=== PATIENT | female | born 1975 | race Caucasian/White ===

== ENCOUNTER 2023-03-10 10:24 | Emergency (ER) | payer SELFPAY ==
[2023-03-10 10:30] VITALS: BP 143/81; PULSE 85; RESP 15; O2SAT 97; BMI 40.9
--- NOTE | 2023-03-10 11:16 | ED_ITS ---
HPI - General Adult General: Chief complaint: General Medical Stated complaint: dizzy, face feels numb Time Seen by Provider: 03/10/23 10:38 History of Present Illness: Patient is a 48-year-old female who comes to the ED with fatigue. Patient states that this morning patient drinks coffee and then took a caffeine pill. Little over half an hour after taking the caffeine pill patient described feeling a little dizzy, episode of palpitations and some tingling sensation to face. Although symptoms have resolved before arrival to the ED. Currently she just feels really fatigued. Denies any fevers, chest pain, shortness of breath, diaphoresis, nausea/vomiting, abdominal pain or bladder symptoms. Patient does endorse some constipation and is only passing some small hard stools for the past couple days. Patient states she does not drink enough water daily. Associated symptoms: Reports palpitations (Resolved before coming to ED); Deny chest pain, dyspnea, headache(s), nausea, rash or vomiting Review of Systems Const: Reports: fatigue; Denies: fever(s) or chills Eyes: Denies: change in vision or eye discomfort ENMT: Denies: throat pain, odynophagia, nasal discharge or nasal congestion Card: Reports: palpitations (Resolved before coming to ED) and lightheadedness (Resolved); Denies: chest pain, edema, swelling of feet/ankles, dyspnea on exertion or orthopnea Resp: Denies: dyspnea, productive cough or non-productive cough GI: Reports: constipation; Denies: abdominal pain, nausea, vomiting, diarrhea or hematochezia : Denies: flank pain, dysuria or hematuria Musc: Denies: neck pain, back pain or extremity swelling Skin/Breast: Denies: rash or new lesions Neuro: Reports: dizziness; Denies: headache(s), numbness in extremities or weakness in extremities PFS ED PFSH: Medical History (Updated 03/10/23 @ 11:33 by JESSICA Pierre) No pertinent family history Surgical History (Updated 03/10/23 @ 11:22 by JESSICA Pierre) No pertinent past surgical history Social History (Updated 01/23/20 @ 16:43 by Irish Dove RN) Smoking and tobacco status: current every day smoker Physical Exam Const: COMMON NORMALS: no acute distress, patient oriented x3 and alert GENERAL APPEARANCE: cooperative and comfortable HENMT: COMMON NORMALS: normocephalic HEAD & SCALP: normocephalic MOUTH: Normal oral and palatal mucosa present THROAT: posterior oropharynx normal and uvula midline Neck/C-Spine: COMMON NORMALS: supple GENERAL: Yes normal visual inspection Resp: COMMON NORMALS: normal respiratory effort, No retractions, No use of accessory muscles and clear to auscultation bilaterally AUSCULTATION: clear to auscultation bilaterally Cardio: COMMON NORMALS: regular rate, regular rhythm, S1 normal heart sound present, S2 normal heart sound present, No gallops present (Cardio), No clicks present (Cardio), No murmurs present (Cardio) and Peripheral pulses 2+ throughout RATE: regular rate RHYTHM: regular rhythm HEART SOUNDS: S1 normal heart sound present and S2 normal heart sound present PERIPHERAL PULSES: Peripheral pulses 2+ throughout GI: COMMON NORMALS: Normal to inspection, nondistended, normoactive bowel sounds present, Soft to palpation, non-tender and no masses PALPATION: Yes Soft to palpation : COMMON NORMALS: Yes no CVA tenderness BLADDER/KIDNEY EXAM: Yes no CVA tenderness Back/Pelvis: COMMON NORMALS: no CVA tenderness Extremity: COMMON NORMALS: normal to inspection Neuro: COMMON NORMALS: patient oriented x3 SENSORIUM/ORIENTATION: Yes alert GAIT: Yes Normal gait present Skin: GENERAL SKIN EXAM: dry skin Course Vital Signs: Vital signs: Vital Signs Pulse Rate 77 03/10/23 11:41 Respiratory Rate 16 03/10/23 11:41 Blood Pressure 134/85 03/10/23 11:41 Pulse Oximetry 97 03/10/23 11:41 Oxygen Delivery Me thod Room Air 03/10/23 10:30 [facility] - General Adult Medical Decision Making Patient is a 48-year-old female who comes to the ED with fatigue. Patient states that this morning patient drinks coffee and then took a caffeine pill. Little over half an hour after taking the caffeine pill patient described feeling a little dizzy, episode of palpitations and some tingling sensation to face. Although symptoms have resolved before arrival to the ED. Currently she just feels really fatigued. Denies any fevers, chest pain, shortness of breath, diaphoresis, nausea/vomiting, abdominal pain or bladder symptoms. Patient does endorse some constipation and is only passing some small hard stools for the past couple days. Patient states she does not drink enough water daily. Vitals are stable. Patient appears nontoxic in no acute distress or pain. Rest of exam is benign. Patient's glucose level was 131 here in the ED and EKG showed Normal sinus rhythm, 77 bpm, no ST segment elevation or depression seen. Patient's symptoms due to adverse reaction from increased caffeine intake. She was stable for discharge home and told to rest for the day and to follow-up with her PCP within the next week for reevaluation. Return to ED precautions given. Patient understood and agreed with plan. Lab Data I reviewed the patient's lab results. Laboratory Results POC Glucose 131 mg/dL (70-110) H 03/10/23 11:16 EKG Data EKG 1: EKG interpretation date: 03/10/23 Interpretation: Normal sinus rhythm, 77 bpm, no ST segment elevation or depression seen. Discharge Plan Discharge Patient Disposition: Home Clinical Impression: Caffeine adverse reaction Qualifiers: Encounter type: initial encounter Qualified Code(s): T43.615A - Adverse effect of caffeine, initial encounter Condition: Stable Prescriptions: No Action albuterol sulfate 90 mcg/actuation HFA aerosol inhaler 2 puff INHALATION Q6H PRN (Reason: shortness of breath or wheezing) Qty: 18 0RF azithromycin 250 mg tablet See Rx Instructions PO .COMPLEX Qty: 6 0RF Rx Instructions: take 500 mg today (day 1), then 250 mg for 4 days (days 2-5) PO Discharge Orders: Discharge ED (Routine); Ordered 03/10/23 Ordered By: Tino Mcleod Discharge Diet: Regular Discharge Activity: Increase activity as tolerated Activity Restrictions/Additional Instructions: Follow-up with medical provider as directed in the next 7 to 10 days for reevaluation. Avoid taking caffeine pills for the next several days. Drink plenty of fluids and stay hydrated. Continue taking all her home medications as previously prescribed. Return to the ER or your medical provider if condition worsens. Please read and understand discharge instructions. Thank you for choosing [facility] for your healthcare needs today. Please realize this is an emergency room and that we are providing you with a medical screening exam and this may not be complete and all inclusive of all the testing and or work up that you may need to determine your ailment or severity of your illness. It is very important that you follow up as instructed or that you return to the Emergency Department should you have concerns or if your condition changes or worsens in any way. Stand Alone Forms: Work/School Release Coding Level of Care Code ED Angiography Technologist for Merari Hutchinson
--- NOTE | 2023-03-10 11:21 | ECG_ITS ---
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 Measurements Intervals [place] Rate: 77 P: 33 [place]: 158 QRS: 8 QRSD: 70 T: 31 QT: 367 QTc: 417 Interpretive Statements SINUS RHYTHM LOW QRS VOLTAGE IN PRECORDIAL LEADS [QRS DEFLECTION < 1.0 mV IN CHEST LEADS] POSSIBLE RIGHT VENTRICULAR CONDUCTION DELAY [RSR (QR) IN V1/V2] POSSIBLE ANTERIOR MYOCARDIAL INFARCTION , OF INDETERMINATE AGE [30 ms Q WAVE IN V3/V4, OR R < 0.2 mV IN V4] No previous ECG available for comparison Electronically Signed On 03-10-2023 21:19:50 CDT by Yosi Underwood M.D. [id number]
[2023-03-10 11:26] LABS: Glucose Point of Care 131 mg/dL (70-110)
[2023-03-10 11:41] VITALS: BP 134/85; PULSE 77; RESP 16; O2SAT 97
--- NOTE | 2023-03-11 15:29 | DCPLANNER ---
survey project manager called patient due to no primary care physician - no answer at this time.
== END 2023-03-10 11:42 | disposition home or self-care (01) ==
PROVIDERS: Emergency Provider Physician Assistant
DX: R42 Dizziness and giddiness (principal); R20.0 Anesthesia of skin; T43.615A Adverse effect of caffeine, initial encounter; F17.210 Nicotine dependence, cigarettes, uncomplicated
CPT/HCPCS: 36416; 82962; 93005; 99284

== ENCOUNTER 2024-04-12 22:33 | Inpatient (IN) | payer SELFPAY ==
[2024-04-12 22:37] VITALS: BP 129/79; PULSE 75; RESP 20; TEMP 37.1; O2SAT 98; BMI 42.3
--- NOTE | 2024-04-12 22:47 | XRR_ITS ---
PROCEDURE INFORMATION: Exam: XR Chest Exam date and time: 04/12/2024 11:19 PM Age: 49 years old Clinical indication: Chest wall pain; Additional info: Chest pain TECHNIQUE: Imaging protocol: Radiologic exam of the chest. Views: 1 view. COMPARISON: No relevant prior studies available. FINDINGS: Lungs: Unremarkable. No consolidation. Pleural spaces: Unremarkable. No pleural effusion. No pneumothorax. Heart/Mediastinum: Cardiomegaly. Bones/joints: Unremarkable. XR/XR chest 1V portable [id number] IMPRESSION: 1. Negative for infiltrate 2. Cardiomegaly.
--- NOTE | 2024-04-12 22:49 | ECG_ITS ---
[facility] Test Date: 2024-04-12 Pat Name: Cristiana Stephen Department: Room: [facility] Gender: Female Chief Of Anesthesiology: : 1975 Requested By: Rayna Resendez Order Number: [id number] Tovar MD: Fei Monique M.D. Measurements Intervals [place] Rate: 74 P: 40 [place]: 191 QRS: 60 QRSD: 79 T: 33 QT: 377 QTc: 420 Interpretive Statements SINUS RHYTHM Compared to ECG 03/10/2023 11:21:09 Myocardial infarct finding no longer present Electronically Signed On 04-13-2024 0:39:42 CDT by Fei Monique M.D. [id number] f
--- NOTE | 2024-04-12 22:50 | ED_ITS ---
HPI - Chest Pain 2 General: Chief Complaint: Chest Pain Stated Complaint: Chest pain Time Seen by Provider: 04/12/24 22:39 History of Present Illness: 49-year-old female who presents the [facility] room with chest pain. Having a central burning chest pain. She says she was seen in the clinic today and was told it might be musculoskeletal. She says however it does not hurt when she breathes and it does not hurt when you push on it. She had an episode of vomiting on her way here. She has no known cardiac history. She says she thinks she might have diabetes but is never been diagnosed. No known fevers. No cough. No abdominal pain. Patient has a history of tobacco dependence, obesity, likely has type 2 diabetes. Review of Systems 2 Narrative: Constitutional symptoms: Negative except as documented in HPI. Skin symptoms: Negative except as documented in HPI. Eye symptoms: Negative except as documented in HPI. ENMT symptoms: Negative except as documented in HPI. Respiratory symptoms: Negative except as documented in HPI. Cardiovascular symptoms: Negative except as documented in HPI. Gastrointestinal symptoms: Negative except as documented in HPI. Genitourinary symptoms: Negative except as documented in HPI. Musculoskeletal symptoms: Negative except as documented in HPI. Neurologic symptoms: Negative except as documented in HPI. Psychiatric symptoms: Negative except as documented in HPI. Endocrine symptoms: Negative except as documented in HPI. PFSH ED 2 PFSH: Medical History (Updated 04/12/24 @ 23:37 by Kristopher Webber MD) Diabetes No pertinent family history Surgical History (Updated 03/10/23 @ 11:22 by JESSICA Pierre) No pertinent past surgical history Social History (Updated 01/23/20 @ 16:43 by Irish Dove RN) Smoking and tobacco/nicotine status: current every day tobacco/nicotine user Physical Exam 2 Narrative: EXAM NARRATIVE: General: Alert, no acute distress. Skin: Warm, dry. Head: Normocephalic, atraumatic. Neck: Supple, trachea midline. Eye: Extraocular movements are intact. Ears, nose, mouth and throat: mucosa moist. Cardiovascular: Regular, Normal peripheral perfusion. Respiratory: Lungs are clear to auscultation, respirations are non-labored, breath sounds are equal, Symmetrical chest wall expansion. Gastrointestinal: Soft, Nontender, Non distended, Normal bowel sounds. Musculoskeletal: Normal ROM, no deformity. Neurological: Alert and oriented, No focal neurological deficit observed. Psychiatric: Cooperative, appropriate mood & affect. Course 2 Vital Signs: Vital signs: Vital Signs Temperature 98.8 F 04/12/24 22:37 Pulse Rate 79 04/12/24 23:28 Respiratory Rate 20 H 04/12/24 23:28 Blood Pressure 116/76 04/12/24 23:28 Pulse Oximetry 100 04/12/24 23:28 Oxygen Delivery Me thod Nasal Cannula 04/12/24 23:28 MDM - Chest Pain Medical Decision Making Differential diagnosis for patient with chest pain includes but is not limited to and based on the above HPI, review of systems and physical exam: Pneumonia. unstable angina. angina. Acute coronary syndrome / NE. Pulmonary embolism. Costochondritis / musculoskeletal. Pleurisy. Pericarditis. Esophageal spasm. Pancreatis. Cholecystitis. Workup: Lab work, chest X-ray and EKG ordered to evaluate, rule in and rule out above pathologies. EKG: Time 2238 rate 74. Normal sinus rhythm, No ST-T changes, no ectopy, normal AR & QRS intervals, This was reviewed and interpreted by myself the ER physician at 2241 Repeat EKG: Normal sinus rhythm, ST elevation inferior leads. reciprocal depression lateral leads. , no ectopy, normal AR & QRS intervals, this was reviewed and interpreted by myself the emergency room physician at 2305. Discussed with inventory associate salvationist at 1 Reexamination: At 23:06 PM Nursing contacted me on around 2300 and said the patient was developing new and worsening chest pain. I ordered a repeat EKG that showed a STEMI at that time. On reexamination she is now very diaphoretic and pale. Lab Review: Laboratory results were reviewed and interpreted by myself the emergency room physician. Patient has a leukocytosis with a white count of 15.8. Hemoglobin is normal at 15.8 as well. Glucose is slightly elevated at 185. I did send a hemoglobin A1c. BUN and creatinine are 16 and 0.8. Her troponin is slightly elevated at 120. I reviewed the patient's medical record. Chest x-ray: No acute process. No infiltrate. No pneumothorax. Patient appears to have some interval development of cardiomegaly. This was reviewed and interpreted by myself the ER physician. Assessment and plan: ST elevation myocardial infarction Unstable angina Morbid obesity Tobacco dependence ?Patient converted to a STEMI while here in the emergency room. STEMI was called at that time. Cardiology saw the patient in the emergency room and is taking to the Footwear Stitcher. -Patient had received aspirin already. Nitro was held when she converted to an inferior STEMI. 600 of Plavix and 4000 units of heparin were given per the inventory associate. -I discussed the patient with the hospitalist on-call who is admitting the patient. - Discussed findings and plan with patient. Answered any questions. - All laboratory values were reviewed and interpreted personally by myself, the ER physician - All imaging was reviewed and interpreted personally by myself, the ER physician. - Evaluation and treatment of this problem were appropriate in the emergency setting -I spent a total of >35 minutes of critical care time managing the patient, independent of any other practitioner. -The time involved in the performance of separately reportable procedures was not counted towards critical care time. Lab Data 04/12/24 23:14 04/12/24 23:14 Laboratory Results WBC 15.80 10^3/uL (3.29-11.43) H 04/12/24 23:14 RBC 5.07 10^6/uL (3.85-5.65) 04/12/24 23:14 Hgb 15.80 g/dL (11.27-16.99) 04/12/24 23:14 Hct 47.5 % (36-47) H 04/12/24 23:14 MCV 93.7 fl (85-98) 04/12/24 23:14 MCH 31.2 pg (27-33) 04/12/24 23:14 MCHC 33.3 g/dL (30-55) 04/12/24 23:14 RDW 12.6 % (12.1-15.1) 04/12/24 23:14 Plt Count 258 10^3/cmm (157-399) 04/12/24 23:14 MPV 12.1 fL (7.4-10.4) H 04/12/24 23:14 Neut % (Auto) 50.5 % 04/12/24 23:14 Lymph % (Auto) 36.8 % 04/12/24 23:14 Pershing % (Auto) 8.4 % 04/12/24 23:14 Eos % (Auto) 3.4 % 04/12/24 23:14 Baso % (Auto) 0.6 % 04/12/24 23:14 Neut # (Auto) 7.99 10^3/uL (1.8-7.7) H 04/12/24 23:14 Lymph # (Auto) 5.8 10^3/uL (0.8-4.8) H 04/12/24 23:14 Pershing # (Auto) 1.3 10^3/uL (0.2-0.9) H 04/12/24 23:14 Eos # (Auto) 0.5 10^3/uL (0.0-0.8) 04/12/24 23:14 Baso # (Auto) 0.1 10^3/uL (0.0-0.1) 04/12/24 23:14 Nucleated RBC % (auto) 0 % 04/12/24 23:14 Nucleated RBCs # 0.0 /100WBC 04/12/24 23:14 Specimen Type Arterial 04/12/24 22:55 Sample Site Radial, right 04/12/24 22:55 ABG pH 7.59 (7.35-7.45) H* 04/12/24 22:55 ABG pCO2 22.1 mmHg (35-45) L 04/12/24 22:55 ABG pO2 84.0 mmHg (80.0-100.0) 04/12/24 22:55 ABG HCO3 21.4 mmol/L (22-26) L 04/12/24 22:55 ABG O2 Saturation 98.9 04/12/24 22:55 ABG Base Excess 1.9 mmol/L (-2.0-2.0) 04/12/24 22:55 Abdi Test Pos 04/12/24 22:55 A-a O2 Gradient 4.7 mmHg (5-10) L 04/12/24 22:55 Hematocrit 48.1 % (37-47) H 04/12/24 22:55 Hgb O2 Saturation 92.9 % (95-100) L 04/12/24 22:55 Carboxyhemoglobin 6.0 %THgb (0.4-20.1) 04/12/24 22:55 Methemoglobin 0.0 % (0.4-1.5) L 04/12/24 22:55 Total Hemoglobin 15.7 g/dL (12-16) 04/12/24 22:55 Sodium 140.0 mmol/L (131-143) 04/12/24 22:55 Potassium 4.0 mmol/L (3.5-5.0) 04/12/24 22:55 Glucose 169.0 mg/dL (70-115) H 04/12/24 22:55 Ionized Calcium 1.1 mmol/L (1.1-1.4) 04/12/24 22:55 O2 Delivery Device Room air 04/12/24 22:55 Forms Builder ID [email or web address] 04/12/24 22:55 Sodium 140 mmol/L (136-145) 04/12/24 23:14 Potassium 5.0 mmol/L (3.5-5.1) 04/12/24 23:14 Chloride 101 mmol/L (98-107) 04/12/24 23:14 Carbon Dioxide 26 mmol/L (22-29) 04/12/24 23:14 Anion Gap 18.0 (5-19) 04/12/24 23:14 BUN 16 mg/dL (6-20) 04/12/24 23:14 Creatinine 0.8 mg/dL (0.5-0.9) 04/12/24 23:14 GFR Calculation 76.2 mL/min (90-130) L 04/12/24 23:14 Glucose 185 mg/dL (65-115) H 04/12/24 23:14 POC Glucose 187 mg/dL (70-110) H 04/12/24 23:10 Estimat Average Glucose 157 04/12/24 23:14 Hemoglobin A1c 7.1 % (4.0-6.0) H 04/12/24 23:14 Calculated Osmolality 296 mOsm/kg (285-295) H 04/12/24 23:14 Lactic Acid 2.6 mmol/L (0.5-2.2) H 04/12/24 23:14 Calcium 9.4 mg/dL (8.5-10.5) 04/12/24 23:14 Total Bilirubin 0.4 mg/dL (0.15-1.2) 04/12/24 23:14 AST 16 U/L (0-32) 04/12/24 23:14 ALT 15 U/L (0-33) 04/12/24 23:14 Alkaline Phosphatase 72 U/L (35-105) 04/12/24 23:14 Troponin T Baseline 114 ng/L (0-10) H* 04/12/24 23:14 C-Reactive Protein 3.0 mg/L (0.0-4.9) 04/12/24 23:14 Total Protein 6.7 g/dL (6.6-8.7) 04/12/24 23:14 Albumin 4.2 g/dL (3.5-5.2) 04/12/24 23:14 Globulin 2.5 g/dL (1.3-4.6) 04/12/24 23:14 Lipase 32 U/L (13-60) 04/12/24 23:14 XR interpretation done by ED provider, pending radiology final review Discharge Plan Discharge Patient Disposition: Admitted As Inpatient Admit Provider: Kristopher Webber Clinical Impression: Tobacco dependence ST elevation myocardial infarction (STEMI) Qualifiers: Involved coronary artery: other inferior wall coronary artery Qualified Code(s): I21.19 - ST elevation (STEMI) myocardial infarction involving other coronary artery of inferior wall Chest pain Qualifiers: Chest pain type: chest pain due to myocardial ischemia Ischemic chest pain type: unstable angina pectoris Qualified Code(s): I20.0 - Unstable angina Obesity Qualifiers: Obesity type: unspecified obesity type Obesity classification: adult class 3 (BMI >= 40) Serious obesity comorbidity presence: with serious comorbidity B nithin mass index: BMI 40.0-44.9 Qualified Code(s): E66.01 - Morbid (severe) obesity due to excess calories Condition: Stable Coding Level of Care Code ED Statistician Mathematical for Merari Hutchinson
--- NOTE | 2024-04-12 22:58 | ECG_ITS ---
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 Measurements Intervals [place] Rate: 79 P: 20 [place]: 243 QRS: 78 QRSD: 98 T: 102 QT: 380 QTc: 437 Interpretive Statements SINUS RHYTHM WITH FIRST DEGREE AV BLOCK MARKED ST ELEVATION, CONSIDER INFERIOR INJURY [MARKED ST ELEVATION W/O NORMALLY INFLECTED T-WAVE IN II/aVF] ACUTE MS Compared to ECG 03/10/2023 11:21:09 First degree AV block now present ST (T wave) deviation now present Myocardial infarct finding still present Electronically Signed On 04-13-2024 0:39:38 CDT by Fei Monique M.D. [id number]
[2024-04-12 23:06] LABS: ABG PCO2 22.1 mmHg (35-45); ABG PH Result 7.59 (7.35-7.45); Alveolar-Arterial Oxygen Gradi 4.7 mmHg (5-10); Arterial Blood Gas Hematocrit 48.1 % (37-47); Base Excess ABG 1.9 mmol/L (-2.0-2.0); Blood Gas Allen Test Pos; Blood Gas Sample Site Radial, right; Blood Gas Sample Type Arterial; HCO3 ABG 21.4 mmol/L (22-26); HGB O2 Sat 92.9 % (95-100); Ionized Calcium Level - ABG 1.1 mmol/L (1.1-1.4); Oxygen Device ROOM AIR; Oxygen Saturation ABG 98.9; Total Hemoglobin 15.7 g/dL (12-16)
[2024-04-12] MEDS: ondansetron 2 mg/ML SDV 2 mL 4 MG IVP (23:11)
[2024-04-12] MEDS: heparin 5,000 unit/mL INJ 1 mL 4000 UNIT IVP (23:17)
[2024-04-12] MEDS: clopidogrel 300 mg Tablet 600 MG PO (23:17)
[2024-04-12 23:19] LABS: Glucose Point of Care 187 mg/dL (70-110)
[2024-04-12] MEDS: aspirin 81 mg Chew Tablet 324 MG PO (23:21)
[2024-04-12 23:23] LABS: Basophils # 0.1 10^3/uL (0.0-0.1); Basophils % 0.6 %; Eosinophils # 0.5 10^3/uL (0.0-0.8); Eosinophils % 3.4 %; Hematocrit 47.5 % (36-47); Lymphocytes # 5.8 10^3/uL (0.8-4.8); Lymphocytes % 36.8 %; Mean Corpuscular HGB Conc 33.3 g/dL (30-55); Mean Corpuscular Hemoglobin 31.2 pg (27-33); Mean Corpuscular Volume 93.7 fl (85-98); Mean Platelet Volume 12.1 fL (7.4-10.4); Monocytes # 1.3 10^3/uL (0.2-0.9); Monocytes % 8.4 %; Neutrophils # 7.99 10^3/uL (1.8-7.7); Neutrophils % 50.5 %; Nucleated Red Blood Cells % 0 %; Platelet Count 258 10^3/cmm (157-399); Red Blood Count 5.07 10^6/uL (3.85-5.65); Red Cell Distribution Width 12.6 % (12.1-15.1)
[2024-04-12 23:28] VITALS: BP 116/76; PULSE 79; RESP 20; O2SAT 100
--- NOTE | 2024-04-12 23:30 | PC.NURSE ---
this nurse went to pts room to assess pt when pt told this nurse her chest pain was getting worse and she was very sweaty. this nurse informed Dr. Espinal who ordered a second EKG. MAURICE Garcia did a second EKG on pt and it was noted pt was having a STEMI. STEMI alert was called at 2306.
--- NOTE | 2024-04-12 23:31 | XACV_ITS ---
Exam Room: 2 Ht: 160 cm Wt: 117 kg BSA: 2.35 m2 Gender: Female : 1975 Exam Priority: Routine Procedure(s): Procedure Description: Diagnostic procedure Procedure Description: Left Heart Catheterization Procedure Description: Coronary Angiography Procedure Description: Left ventriculography Procedure Description: PCI procedure Procedure Description: Drug Eluting Coronary Stent Kylie REESE; Diagnostic Cath Status: Emergency Diagnostic Findings * Typical chest pain on and off for about 5 days. Earlier this evening much more severe with ST elevation inferiorly. Procedure done from the right radial artery. Patient with very low pain tolerance. The right coronary artery is a large dominant vessel and is occluded just at the acute margin. No collateral flow distally. The left main is normal with some mild plaquing distally. Circumflex is a small vessel and gives off a very small first obtuse marginal branch. The vessel is then occluded in the midportion with some collateral flow to a distal larger marginal branch. The remainder of the AV groove branch is small which then gives off and left atrial recurrent branch. No significant stenoses other than diffuse luminal irregularities. The LAD is small and gives off several small diagonal branches and to septal branches. The LAD branches are likewise small. They provide the collateral flow to the occluded marginal branch.. PCI Status: Emergency PCI LVEF Assessed: Yes PCI Indication: STEMI - Immediate PCI for STEMI Interventional Findings * A wire was placed to the distal vessel. The distal right coronary artery was primarily stented. This reestablished MCKAY-3 flow. I administered Aggrastat because of continued pain and ST elevation despite the normal flow. I suspected downstream embolization. Pain was nearly resolved by the end of the procedure. Decision for PCI with Surgical Consult: No PCI for Multi-vessel Disease: No Conclusions 1. Inferior wall MS with stenting of the right coronary artery. Recommendations * Medical therapy. Sliding scale insulin. Aggrastat drip. Interventional RX Recommendation: PCI w/o planned CABG Diagnostic RX Recommendation: PCI w/o planned CABG Anticoagulation: Heparin, Tirofiban Ventriculography Ejection Fraction: 45.0 % Pressures Phase:Rest AO : 121 / 95 ( 108 ) @ 7:26:37 PM 119 / 93 ( 106 ) @ 7:26:37 PM 116 / 91 ( 104 ) @ 7:26:37 PM 77 / 62 ( 69 ) @ 7:26:37 PM 109 / 82 ( 95 ) @ 7:26:37 PM / ( 90 ) @ 7:26:37 PM 106 / 86 ( 97 ) @ 7:26:37 PM 145 / 88 ( 111 ) @ 7:26:37 PM 144 / 72 ( 103 ) @ 7:26:37 PM LV : 152 / 6 / 40 @ 7:26:37 PM 147 / 11 / 39 @ 7:26:37 PM 147 / 10 / 37 @ 7:26:37 PM Valves Phase:DefaultPhase AV : 4.0 @ 12:26:37 AM 4.0 @ 12:26:37 AM AV Mean Gradient: 15.0 @ 12:26:37 AM 15.0 @ 12:26:37 AM Clinical Evaluation EBL: 5mL-10mL Procedural Details Pre-Procedure Time Out. Identified patient by full name and date of as verbalized by the patient/guarantor. Does the consent match the physician's order: N/A Emergent. Accurate & Complete Informed Consent: N/A Emergent. Inpatient/Outpatient History & Physical on Chart: N/A Emergent. If H&P is completed, is and addenduem needed: N/A Emergent; If yes, is the addendum complete: N/A Emergent. Visualize and Verify Site with Patient/Guarantor: N/A. Relevant Radiology Images available: N/A. Pre-op teaching completed and patient verbalized understanding. The risks, benefits, and alternatives of sedation and/or procedure were discussed by physician. The patient agrees to continue. Procedure started. [facility] Clinical Fraility Score: 3: Managing Well. 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 Chest Pain Symptom Assessment: Typical Angina Symptoms. Cardiovascular Instability: Yes, if yes, Persistant Ischemic Symptoms. Correct patient, site and procedure confirmed by cath team. Current diagnosis: STEMI. PERRLA. Strong, equal hand pediatric registered nurse bilaterally. Lungs clear x 5 lobes. IV Site on Arrival: 20 gauge in the left anticubital. IV Site on Arrival: 20 gauge in the right anticubital. IV Fluids: 0.9% NaCl at KVO. 0 mL infused prior to lab associate. Pre Procedural Pulses: right radial was 1+. Pre Procedural Pulses: bilateral dorsalis pedis was 1+. Oxygen started at 2liters/min via nasal canula. right radial was prepped with chloroprep then draped in the usual sterile fashion. right groin was prepped with chloroprep then draped in the usual sterile fashion. Physician notified. Baseline sample Acquired. HR: 55 BPM. Physician arrived. Physician scrubbed in. Immediate Pre-Procedure Time Out. Correct Patient: Yes; Correct Procedure: Yes; Correct Site: Yes; Correct Patient Position: Yes; Correct Supplies: Yes; Dried Flammable Prep: Yes; Blood Products Available: N/A;. Lidocaine 1% infiltrated to the right radial. Admit Source: Emergency department. Arterial access obtained. 6 colombian JR 4 guide catheter was inserted over the wire. Cine run performed of RCA. Straughn guidewire was advanced through the guide catheter to lesion in the distal RCA. Stent inserted to lesion in the distal RCA. Inflation Number : [address] MADELEINE 3.0X18 FABRICE -Lot Number# [id number] Exp 07/18/2026 was prepped and advanced across the Dist RCA. The stent was deployed at 12 HANNAH for 0:30 seconds. Results checked. Stent balloon out over wire. Results checked. Wire out. Guide catheter out. A 5 colombian TIG catheter in over wire. Multiple views taken of left coronary artery. Catheter removed over the exchange wire. A 5 colombian Angled Pig catheter in over wire. Catheter advanced across the LV. EDP Sample taken: LV 152/6,40; HR: 93 BPM; SpO2: 99%. LV gram performed in HART @ 10 mL/second for a total of 30 mL. EDP Sample taken: LV 147/11,39; HR: 94 BPM; SpO2: 99%. Pullback taken: LV 147/10,37; AO 145/88(111); Mean: 15mmHg, Peak to Peak: 4mmHg, SEP: 11sec/min; HR: 94 BPM; SpO2: 99%. Catheter out. Physician scrubbed out. A TR Band was successful obtaining hemostatsis at the Right Radial artery insertion site. Post Procedure: Pulses reassessed and unchanged. PERRLA. Strong, equal hand pediatric registered nurse bilaterally. No VTE prophylaxis required. Medication's Wasted: Heparin = 1000 u. Medication's Wasted: Lidocaine 1% = 15 mL. Medication's Wasted: Other = Versed 1mg. Total IV fluids: 50 mL. PCI Indication: STEMI. Post-op diagnosis: Acute Inferior wall MS. Complications: none. Estimated blood loss: 5mL-10mL. Responsiveness - Normal response to verbal stimuli; alert and oriented, PERRLA. Airway - Unaffected, no intervention required; spontaneous ventilation. Circulation: W/N/L, pulses unchanged. Nausea/Vomiting: No. Procedure completed. Patient transferred by bed to ICU. Vital chart was stopped. Access Site Site: Right Radial artery Sheath Size: 6 Fr Hemostasis Method: TR Band Hemostasis Success: Successful Procedure Medications Start: 11:50 PM Stop: 11:50 PM Medication: Versed Amount: 1 mg Route: I.V. Start: 11:50 PM Stop: 11:50 PM Medication: Fentanyl Amount: 25 mcg Route: I.V. Start: 11:54 PM Stop: 11:54 PM Medication: Nitrogylcerin Amount: 200 mcg Route: I.A. Start: 11:57 PM Stop: 11:57 PM Medication: Fentanyl Amount: 25 mcg Route: I.V. Start: 12:07 AM Stop: 12:07 AM Medication: Aggrastat 12.5 mg/250 mL Amount: 60 ml Route: I.C. Start: 12:07 AM Stop: 12:07 AM Medication: Aggrastat 12.5 mg/250 mL Amount: 21.6 ml/hr Route: I.V. drip Start: 12:12 AM Stop: 12:12 AM Medication: Fentanyl Amount: 25 mcg Route: I.V. Start: 12:18 AM Stop: 12:18 AM Medication: Fentanyl Amount: 25 mcg Route: I.V. I, the attending physician, have reviewed and verified all procedure medications. Yes, all medications given per verbal order Report Signatures Finalized by Dr. Kristopher Webber MD on 04/13/2024 12:34 AM
--- NOTE | 2024-04-12 23:35 | P.HP_ITS ---
Providers/Chief Complaint 2 Admitting Physician: Lawanda Chief Complaint: Chest pain History of Present Illness Cristiana Stephen is a 49 year old female who does not see physicians. She was told 5 years ago that she had sugar in her urine. She is a smoker. She also has obesity. She says she has angina. She denies hypertension. She has been having chest pain for about 5 or 6 days off and on. She has had episodes of diaphoresis and nausea. This evening the pain got to the point where she could not stand it and so she came into the emergency room. Her first EKG was at 2239 hrs. which was basically normal. The second was at [address] segment elevation in leads II, 3, aVF with reciprocal ST depression in leads I, L and V1 and V2. A STEMI alert was called. She continues to have pain. She has been given aspirin, Plavix and heparin. Review of Systems 2 Narrative: Not available due to the acute nature of the problem. Medications/Allergies Home Medications Medication Instructions Recorded Confirmed Last Taken Type albuterol sulfate 90 mcg/actuation 2 puff inhalation Q6H PRN 01/23/20 04/12/24 Unknown Rx aerosol inhaler shortness of breath or wheezing #18 grams cyclobenzaprine 5 mg tablet 5 mg PO TID PRN muscle spasm #20 04/12/24 04/12/24 Unknown Rx tabs Allergies Allergy/AdvReac Type Severity Reaction Status Date / Time No Known Allergies Allergy Verified 04/12/24 12:33 PFSH Acute 2 PFSH: Medical History (Updated 04/12/24 @ 23:37 by Kristopher Webber MD) Diabetes No pertinent family history Surgical History (Updated 03/10/23 @ 11:22 by JESSICA Pierre) No pertinent past surgical history Social History (Updated 01/23/20 @ 16:43 by Irish Dove RN) Smoking and tobacco/nicotine status: current every day tobacco/nicotine user Vitals/I&O/Wt Last Vital Signs Temp 98.8 F 04/12/24 22:37 Pulse 79 04/12/24 23:28 Resp 20 H 04/12/24 23:28 BP 116/76 04/12/24 23:28 Pulse Ox 100 04/12/24 23:28 O2 Del Method Nasal Cannula 04/12/24 23:28 Weight last 48 hrs Weight 239 lb Physical Exam 2 Narrative: GENERAL: Pale, unkempt obese woman HEENT: Exam within normal limits. NECK: Supple without jugular vein distention. The carotid upstroke is normal without bruits. BACK: Exam normal. LUNGS: Clear. HEART: Regular rate and rhythm. ABDOMEN: Benign without organomegaly or tenderness. EXTREMITIES: No edema. NEUROLOGIC: Exam normal. SKIN: Unremarkable. Data 04/12/24 23:14 04/12/24 23:14 A&P Assessment and plan (1) ST elevation myocardial infarction (STEMI): Qualifiers: Involved coronary artery: other inferior wall coronary artery Qualified Code(s): I21.19 - ST elevation (STEMI) myocardial infarction involving other coronary artery of inferior wall (2) Chest pain: Qualifiers: Chest pain type: chest pain due to myocardial ischemia Ischemic chest pain type: unstable angina pectoris Qualified Code(s): I20.0 - Unstable angina (3) Tobacco dependence: (4) Obesity: Qualifiers: Body mass index: BMI 40.0-44.9 Obesity classification: adult class 3 (BMI >= 40) Obesity type: unspecified obesity type Serious obesity comorbidity presence: with serious comorbidity Qualified Code(s): E66.01 - Morbid (severe) obesity due to excess calories; Z68.41 - Body mass index [BMI] 40.0-44.9, adult (5) Diabetes: Plan Catheterization laboratory right away. Attestations 2 Medical Necessity Statement*: Admission for acute inferior wall LA. Expect her hospital stay to cross 2 midnights. and Moderate Time for a total of 40 minutes, includes reviewing past or interval history, examining/interviewing patient, placing orders, counseling patient/family/other support, updating patient/family/other support, discussing plan of care with staff, communicating with other healthcare providers, documenting encounter and coordinating care Diagnoses ST elevation myocardial infarction (STEMI) I21.19 Involved coronary artery: other inferior wall coronary artery Chest pain I20.0 Chest pain type: chest pain due to myocardial ischemia Ischemic chest pain type: unstable angina pectoris Tobacco dependence F17.200 Obesity E66.01; Z68.41 Body mass index: BMI 40.0-44.9 Obesity classification: adult class 3 (BMI >= 40) Obesity type: unspecified obesity type Serious obesity comorbidity presence: with serious comorbidity Diabetes E11.9
[2024-04-12 23:43] LABS: Alanine Aminotransferase 15 U/L (0-33); Albumin Level 4.2 g/dL (3.5-5.2); Alkaline Phosphatase 72 U/L (35-105); Aspartate Amino Transferase 16 U/L (0-32); Blood Urea Nitrogen 16 mg/dL (6-20); Calcium 9.4 mg/dL (8.5-10.5); Carbon Dioxide 26 mmol/L (22-29); Chloride 101 mmol/L (98-107); Creatinine Clr Calc Pharmacy 100.4524; Globulin 2.5 g/dL (1.3-4.6); Glomerular Filtration Rate 76.2 mL/min (90-130); Glucose 185 mg/dL (65-115); Lipase 32 U/L (13-60); Osmolality Calculated 296 mOsm/kg (285-295); Sodium 140 mmol/L (136-145); Total Bilirubin 0.4 mg/dL (0.15-1.2); Total Protein 6.7 g/dL (6.6-8.7); Troponin(5th) Baseline 114 ng/L (0-10)
[2024-04-12 23:44] LABS: Lactic Sepsis W/Reflex 2.6 mmol/L (0.5-2.2)
[2024-04-12 23:52] LABS: Estmated Average Glucose 157; Hemoglobin A1C 7.1 % (4.0-6.0)
[2024-04-13] VITALS (35 sets, daily range): BP systolic 104–149; BP diastolic 73–115; PULSE 70–99; RESP 13–22; TEMP 36.6–37.3; O2SAT 86–100
--- NOTE | 2024-04-13 00:49 | ECG_ITS ---
[facility] Test Date: 2024-04-13 Pat Name: Cristiana Stephen Department: Room: ICU02 Gender: Female Bankruptcy Legal Assistant: : 1975 Requested By: Rayna Resendez Order Number: [id number] Guy MD: Kristopher Webber M.D. Measurements Intervals [place] Rate: 99 P: 241 NE: 217 QRS: -81 QRSD: 155 T: 79 QT: 352 QTc: 453 Interpretive Statements Accelerated idioventricular rhythm LEFT AXIS DEVIATION [QRS AXIS < -30] RIGHT BUNDLE BRANCH BLOCK [120+ ms QRS DURATION, UPRIGHT V1, 40+ ms S IN I/aVL/V4/V5/V6] Compared to ECG 04/12/2024 23:05:14 Left-axis deviation now present Right bundle-branch block now present ST (T wave) deviation no longer present Electronically Signed On 04-13-2024 8:37:12 CDT by Kristopher Webber M.D. [id number]
[2024-04-13 01:08] LABS: Reflex Lactate Order REFLEX LACTIC ORDERD
[2024-04-13] MEDS: sodium chloride 0.9% 1,000 ML 100 ML IV ×3 (01:08→22:25)
[2024-04-13] MEDS: atorvastatin 40 mg Tablet 80 MG PO ×2 (01:12→20:18)
[2024-04-13] MEDS: morphine 4 mg/mL SDV 1 mL 2 MG IVP (01:12)
[2024-04-13 01:57] LABS: Lactic Acid level (Lactate) 3.3 mmol/L (0.5-2.2)
--- NOTE | 2024-04-13 03:48 | PC.NURSE ---
Right Radial TR Band 0130 -- 2mL air removed from TR band 0145 -- 2mL air removed from TR band 0200 -- 2mL air removed from TR band 0215 -- 2mL air removed from TR band 0230 -- 2mL air removed from TR band 0245 -- 2mL air removed from TR band 0300 -- 2mL air removed from TR band 0315 -- 2mL air removed from TR band 0330 -- 2mL air removed from TR band, no air remains in TR band. No bleeding or hematoma noted. 0345 -- Right radial heart cath puncture site with no bleeding noted. TR band removed. Dried blood cleaned from hand and wrist. Bandaid placed over puncture site.
--- NOTE | 2024-04-13 04:49 | ECG_ITS ---
[facility] Test Date: 2024-04-13 Pat Name: Cristiana Stephen Department: Room: ICU02 Gender: Female Pathology Teacher: : 1975 Requested By: Rayna Resendez Order Number: [id number] Guy MD: Kristopher Webber M.D. Measurements Intervals [place] Rate: 83 P: 42 GA: 160 QRS: -39 QRSD: 86 T: -46 QT: 382 QTc: 449 Interpretive Statements SINUS RHYTHM LEFT AXIS DEVIATION [QRS AXIS < -30] POSSIBLE RIGHT VENTRICULAR CONDUCTION DELAY [RSR (QR) IN V1/V2] POSSIBLE INFERIOR MYOCARDIAL INFARCTION , OF INDETERMINATE AGE [30 ms Q WAVE IN II/aVF] Compared to ECG 04/13/2024 00:56:47 Myocardial infarct finding now present First degree AV block no longer present Right bundle-branch block no longer present Electronically Signed On 04-13-2024 8:37:43 CDT by Kristopher Webber M.D. [id number]
[2024-04-13 05:55] LABS: Add Urine Culture? No; Bacteria Urine TRACE /hpf; Bilirubin Urine Neg (Negative); Blood Urine Neg (Negative); Glucose Urine UA Norm (Normal); Ketones Urine 1+ (Negative); Leukocyte Esterase Urine Negative (Negative); Nitrate Urine Negative (Negative); Protein Urine Trace (Negative); RBC Urine 0-4 /hpf (0-2); Specific Gravity, Urine 1.005 (1.005-1.030); Urine Appearance Slightly Cloudy (CLEAR); Urine Color Yellow (Yellow); Urobilinogen Urine Neg (Negative); pH Urine 6.5 (5-7)
[2024-04-13 07:43] LABS: Glucose Point of Care 121 mg/dL (70-110)
[2024-04-13] MEDS: clopidogrel 75 mg Tablet PO (08:19)
[2024-04-13] MEDS: metoprolol succinate ER (24 HR) 25 mg Tablet PO ×2 (08:19→17:30)
--- NOTE | 2024-04-13 08:24 | P.PN_ITS ---
Subjective 2 Subjective: Patient had a right coronary artery occlusion last evening. A stent was placed in the right coronary artery. She complains of pain everywhere. Today she is complaining that the left arm IV is hurting her. No chest pain. I put her on low-dose sliding scale insulin. Her blood sugars have been running in the low 100s. The initial troponin was 114. It appears as though serial troponins were not ordered. ST segments have come back to normal this morning Vitals/I&O/Wt Last Vital Signs Temp 98.5 F 04/13/24 07:53 Pulse 87 04/13/24 07:31 Resp 16 04/13/24 07:31 BP 136/100 04/13/24 07:00 Pulse Ox 93 04/13/24 07:31 O2 Del Method Room Air 04/13/24 07:31 O2 Flow Rate 1 04/13/24 07:31 04/12/24 04/13/24 04/13/24 22:59 06:59 14:59 Intake Total 100 / 100 Output Total 400 / 400 Balance -300 / -300 Weight last 48 hrs Weight 223 lb Weight 223 lb 11.2 oz Weight 239 lb Physical Exam 2 Narrative: GENERAL: In general she looks and feels well HEENT: Exam within normal limits. NECK: Supple without jugular vein distention. The carotid upstroke is normal without bruits. BACK: Exam normal. LUNGS: Clear. HEART: Regular rate and rhythm. ABDOMEN: Benign without organomegaly or tenderness. EXTREMITIES: No edema. NEUROLOGIC: Exam normal. SKIN: Unremarkable. Data 04/12/24 23:14 04/12/24 23:14 A&P Assessment and plan (1) ST elevation myocardial infarction (STEMI): Qualifiers: Involved coronary artery: other inferior wall coronary artery Qualified Code(s): I21.19 - ST elevation (STEMI) myocardial infarction involving other coronary artery of inferior wall (2) Tobacco dependence: (3) Diabetes: (4) Obesity: Qualifiers: Body mass index: BMI 40.0-44.9 Obesity classification: adult class 3 (BMI >= 40) Obesity type: unspecified obesity type Serious obesity comorbidity presence: with serious comorbidity Qualified Code(s): E66.01 - Morbid (severe) obesity due to excess calories; Z68.41 - Body mass index [BMI] 40.0-44.9, adult Plan Remove the left arm IV. Adjust medications. Home tomorrow. Attestations 2 Medical Necessity Statement*: Hospitalization for management of an acute inferior ST elevation [place]. and Moderate Time for a total of 35 minutes, includes reviewing past or interval history, examining/interviewing patient, placing orders, counseling patient/family/other support, updating patient/family/other support, discussing plan of care with staff, communicating with other healthcare providers, documenting encounter and coordinating care Diagnoses ST elevation myocardial infarction (STEMI) I21.19 Involved coronary artery: other inferior wall coronary artery Tobacco dependence F17.200 Diabetes E11.9 Obesity E66.01; Z68.41 Body mass index: BMI 40.0-44.9 Obesity classification: adult class 3 (BMI >= 40) Obesity type: unspecified obesity type Serious obesity comorbidity presence: with serious comorbidity
[2024-04-13 11:21] LABS: Glucose Point of Care 151 mg/dL (70-110)
[2024-04-13] MEDS: aspirin 81 mg Chew Tablet PO (12:03)
[2024-04-13] MEDS: insulin lispro 100 unit/1 mL SUBCUT ×2 (12:03→17:31)
[2024-04-13 17:17] LABS: Glucose Point of Care 145 mg/dL (70-110)
[2024-04-13 20:20] LABS: Glucose Point of Care 137 mg/dL (70-110)
[2024-04-13] MEDS: acetaminophen 325 mg Tablet 650 MG PO (23:52)
[2024-04-13] MEDS: temazepam 15 mg Capsule PO (23:52)
[2024-04-14] VITALS: BP 116/80; PULSE 73; RESP 14; TEMP 37.1; O2SAT 96
[2024-04-14 02:00] VITALS: BP 105/62; PULSE 70; RESP 16; O2SAT 90
[2024-04-14 04:00] VITALS: BP 134/64; PULSE 92; RESP 16; TEMP 36.9; O2SAT 93
[2024-04-14 06:00] VITALS: BP 124/97; PULSE 75; PULSE 78; RESP 19; O2SAT 95
--- NOTE | 2024-04-14 07:30 | PM.DCS ---
Discharge Providers Date of Admission: April 12, 2024 Date of Discharge: April 14, 2024 Attending Provider at Admission: Kristopher Webber MD Attending Provider at Discharge: Kristopher Webber MD Diagnoses at Discharge Discharge Diagnosis (1) ST elevation myocardial infarction (STEMI): Status: Acute Qualifiers: Involved coronary artery: other inferior wall coronary artery Qualified Code(s): I21.19 - ST elevation (STEMI) myocardial infarction involving other coronary artery of inferior wall (2) Tobacco dependence: Status: Acute (3) Diabetes: Status: Acute (4) Obesity: Status: Acute Qualifiers: Body mass index: BMI 40.0-44.9 Obesity classification: adult class 3 (BMI >= 40) Obesity type: unspecified obesity type Serious obesity comorbidity presence: with serious comorbidity Qualified Code(s): E66.01 - Morbid (severe) obesity due to excess calories; Z68.41 - Body mass index [BMI] 40.0-44.9, adult Reason for Visit Reason for Visit: Chest pain Brief History: Patient has been having fairly typical angina type chest discomfort for about 5 or 6 days prior to coming to the emergency room late in the evening on April 12. She came in because the pain worsened and would not go away. Her initial EKG was essentially normal. The second EKG about [address] elevation in the inferior leads with reciprocal changes in the anterior precordial leads. A STEMI alert was called and she was taken directly to the catheterization laboratory. Hospital Course Hospital Course Her right coronary artery was a occluded at the acute margin. It was primarily stented. Aggrastat was used for a fairly substantial clot burden in the artery. The catheterization lab stay was uneventful. Her postprocedure stay was uneventful. She had several runs of accelerated idioventricular rhythm but no hemodynamic compromise and no high degree AV block or arrhythmias otherwise. The procedure was done from the right radial artery. There were no complications and no vascular problems arose. There was no bleeding from the entry site. The other coronary arteries were remarkable for an occluded second obtuse marginal branch that had some collateral flow from the LAD. Otherwise, there were diabetic appearing vessels with mild plaque throughout. The patient complained of pain in a number of areas including an IV site in her left arm. She complains that her food does not digest. At home she was taking no medications, not seeing a physician and is a heavy smoker. She is known for several years that she has sugar in her urine but has not treated it. Her blood sugars in the hospital were in the mid 100s. During the hospital stay I used subcutaneous sliding scale insulin for her blood sugars. At the time of discharge I have added metformin, aspirin, Plavix, beta-reg and a statin. I was very clear about the importance of taking the medications. Upon discharge I tried to stress the importance of smoking cessation, weight loss, proper medication use and spoke to her about a diet. Physical Exam Narrative: GENERAL: In general she looks and feels well HEENT: Exam within normal limits. NECK: Supple without jugular vein distention. The carotid upstroke is normal without bruits. BACK: Exam normal. LUNGS: Clear. HEART: Regular rate and rhythm. ABDOMEN: Benign without organomegaly or tenderness. EXTREMITIES: No edema. At the time of discharge the right radial artery entry site is flat, dry without bleeding, hematoma or vascular anomaly. 2+ pulse. NEUROLOGIC: Exam normal. SKIN: Unremarkable. Discharge Data Studies Completed and Pending Completed Studies During Hospitalization Category Date Time Status PHYSICIAN ASSISTANT PSYCHIATRY request for service Stat Exams 04/12/24 23:31 Completed XR chest 1V portable [id number] Stat Exams 04/12/24 22:47 Completed Radiology Impressions Chest X-Ray 04/12/24 22:47 IMPRESSION: 1. Negative for infiltrate 2. Cardiomegaly. Laboratory Results WBC 15.80 10^3/uL (3.29-11.43) H 04/12/24 23:14 RBC 5.07 10^6/uL (3.85-5.65) 04/12/24 23:14 Hgb 15.80 g/dL (11.27-16.99) 04/12/24 23:14 Hct 47.5 % (36-47) H 04/12/24 23:14 MCV 93.7 fl (85-98) 04/12/24 23:14 MCH 31.2 pg (27-33) 04/12/24 23:14 MCHC 33.3 g/dL (30-55) 04/12/24 23:14 RDW 12.6 % (12.1-15.1) 04/12/24 23:14 Plt Count 258 10^3/cmm (157-399) 04/12/24 23:14 MPV 12.1 fL (7.4-10.4) H 04/12/24 23:14 Neut % (Auto) 50.5 % 04/12/24 23:14 Lymph % (Auto) 36.8 % 04/12/24 23:14 Geary % (Auto) 8.4 % 04/12/24 23:14 Eos % (Auto) 3.4 % 04/12/24 23:14 Baso % (Auto) 0.6 % 04/12/24 23:14 Neut # (Auto) 7.99 10^3/uL (1.8-7.7) H 04/12/24 23:14 Lymph # (Auto) 5.8 10^3/uL (0.8-4.8) H 04/12/24 23:14 Geary # (Auto) 1.3 10^3/uL (0.2-0.9) H 04/12/24 23:14 Eos # (Auto) 0.5 10^3/uL (0.0-0.8) 04/12/24 23:14 Baso # (Auto) 0.1 10^3/uL (0.0-0.1) 04/12/24 23:14 Nucleated RBC % (auto) 0 % 04/12/24 23:14 Nucleated RBCs # 0.0 /100WBC 04/12/24 23:14 Specimen Type Arterial 04/12/24 22:55 Sample Site Radial, right 04/12/24 22:55 ABG pH 7.59 (7.35-7.45) H* 04/12/24 22:55 ABG pCO2 22.1 mmHg (35-45) L 04/12/24 22:55 ABG pO2 84.0 mmHg (80.0-100.0) 04/12/24 22:55 ABG HCO3 21.4 mmol/L (22-26) L 04/12/24 22:55 ABG O2 Saturation 98.9 04/12/24 22:55 ABG Base Excess 1.9 mmol/L (-2.0-2.0) 04/12/24 22:55 Abdi Test Pos 04/12/24 22:55 A-a O2 Gradient 4.7 mmHg (5-10) L 04/12/24 22:55 Hematocrit 48.1 % (37-47) H 04/12/24 22:55 Hgb O2 Saturation 92.9 % (95-100) L 04/12/24 22:55 Carboxyhemoglobin 6.0 %THgb (0.4-20.1) 04/12/24 22:55 Methemoglobin 0.0 % (0.4-1.5) L 04/12/24 22:55 Total Hemoglobin 15.7 g/dL (12-16) 04/12/24 22:55 Sodium 140.0 mmol/L (131-143) 04/12/24 22:55 Potassium 4.0 mmol/L (3.5-5.0) 04/12/24 22:55 Glucose 169.0 mg/dL (70-115) H 04/12/24 22:55 Ionized Calcium 1.1 mmol/L (1.1-1.4) 04/12/24 22:55 O2 Delivery Device Room air 04/12/24 22:55 Wrapper Sizer ID [email or web address] 04/12/24 22:55 Sodium 140 mmol/L (136-145) 04/12/24 23:14 Potassium 5.0 mmol/L (3.5-5.1) 04/12/24 23:14 Chloride 101 mmol/L (98-107) 04/12/24 23:14 Carbon Dioxide 26 mmol/L (22-29) 04/12/24 23:14 Anion Gap 18.0 (5-19) 04/12/24 23:14 BUN 16 mg/dL (6-20) 04/12/24 23:14 Creatinine 0.8 mg/dL (0.5-0.9) 04/12/24 23:14 GFR Calculation 76.2 mL/min (90-130) L 04/12/24 23:14 Glucose 185 mg/dL (65-115) H 04/12/24 23:14 POC Glucose 137 mg/dL (70-110) H 04/13/24 20:17 Estimat Average Glucose 157 04/12/24 23:14 Hemoglobin A1c 7.1 % (4.0-6.0) H 04/12/24 23:14 Calculated Osmolality 296 mOsm/kg (285-295) H 04/12/24 23:14 Lactic Acid 2.6 mmol/L (0.5-2.2) H 04/12/24 23:14 Lactic Acid (Sepsis) 3.3 mmol/L (0.5-2.2) H 04/13/24 01:10 Calcium 9.4 mg/dL (8.5-10.5) 04/12/24 23:14 Total Bilirubin 0.4 mg/dL (0.15-1.2) 04/12/24 23:14 AST 16 U/L (0-32) 04/12/24 23:14 ALT 15 U/L (0-33) 04/12/24 23:14 Alkaline Phosphatase 72 U/L (35-105) 04/12/24 23:14 Troponin T Baseline 114 ng/L (0-10) H* 04/12/24 23:14 C-Reactive Protein 3.0 mg/L (0.0-4.9) 04/12/24 23:14 Total Protein 6.7 g/dL (6.6-8.7) 04/12/24 23:14 Albumin 4.2 g/dL (3.5-5.2) 04/12/24 23:14 Globulin 2.5 g/dL (1.3-4.6) 04/12/24 23:14 Lipase 32 U/L (13-60) 04/12/24 23:14 Urine Color Yellow (Yellow) 04/13/24 05:35 Urine Appearance Slightly cloudy (CLEAR) 04/13/24 05:35 Urine pH 6.5 (5-7) 04/13/24 05:35 Ur Specific [place] 1.005 (1.005-1.030) 04/13/24 05:35 Urine Protein Trace (Negative) 04/13/24 05:35 Urine Glucose (UA) Norm (Normal) 04/13/24 05:35 Urine Ketones 1+ (Negative) H 04/13/24 05:35 Urine Blood Neg (Negative) 04/13/24 05:35 Urine Nitrate Negative (Negative) 04/13/24 05:35 Urine Bilirubin Neg (Negative) 04/13/24 05:35 Urine Urobilinogen Neg mg/dL (Negative) 04/13/24 05:35 Ur Leukocyte Esterase Negative (Negative) 04/13/24 05:35 Urine RBC 0-4 /hpf (0-2) H 04/13/24 05:35 Urine WBC None /hpf (0-5) 04/13/24 05:35 Ur Squamous Epith Cells 5-10 /hpf (0-5) H 04/13/24 05:35 Amorphous Sediment Not Reportable 04/13/24 05:35 Urine Bacteria Trace /hpf (NONE) 04/13/24 05:35 Procedures Performed Left heart catheterization, left ventriculography, coronary angiography, primary stenting of the mid to distal right coronary artery. Vitals Last Vital Signs Temp 98.4 F 04/14/24 04:00 Pulse 75 04/14/24 06:00 Resp 19 H 04/14/24 06:00 BP 124/97 04/14/24 06:00 Pulse Ox 95 04/14/24 06:00 O2 Del Method Room Air 04/14/24 06:00 O2 Flow Rate 1 04/13/24 11:00 Discharge Plan Discharge Patient Disposition: Home Condition: Stable Prescriptions: New aspirin 81 mg Tablet,Chewable 81 mg PO DAILY Qty: 100 0RF metformin 500 mg tablet 500 mg PO DAILY Qty: 90 0RF atorvastatin 40 mg Tablet 80 mg PO BEDTIME Qty: 90 0RF clopidogrel 75 mg Tablet 75 mg PO DAILY Qty: 90 0RF metoprolol succinate 25 mg Tablet Extended Release 24 Hr 25 mg PO BID Qty: 180 0RF nitroglycerin 0.4 mg Tablet, Sublingual 0.4 mg sublingual Q5M PRN (Reason: Chest Pain) Qty: 25 0RF Continued cyclobenzaprine 5 mg tablet 5 mg PO TID PRN (Reason: muscle spasm) Qty: 20 0RF Discharge Orders: Discharge Order (Routine); Ordered 04/14/24 Ordered By: Kristopher Webber Referrals: Janet Woo FNP [Nurse Practitioner] - 7-10 days (Check right radial artery entry site and chemistry panel.) Naveed Cheng MD [Physician] - 04/26/24 1:15 pm Discharge Diet: Diabetic Discharge Activity: Increase activity as tolerated and Limit activity as instructed Patient Instructions: Diabetes and Diet, Coronary Angioplasty (DC), How to Stop Smoking (DC), Cigarette Smoking and Your Health (GEN), Opioid Safety, Quitting Smoking Activity Restrictions/Additional Instructions: No lifting over 5 pounds with the right upper extremity for 2 days. No vigorous activity for 2 weeks. Follow-up cardiology clinic 7 to 10 days and follow-up new primary care provider. Discharge Attestations Time Spent in Discharge Care*: greater than 30 min Time Spent in Smoking Cessation: 3 to 10 minutes Quality Metrics Clinical Quality Measures [ Acute Myocardial Infaction { Clinical Trial Participant: No; Contraindication to aspirin: None; Aspirin prescribed; Contraindication to statin: None; Statin prescribed; Contraindication to PCI: None; PCI performed;}] Coding Level of Care Code 70564 Total time (in minutes) for Discharge: [address] elevation myocardial infarction (STEMI) I21.19 Involved coronary artery: other inferior wall coronary artery Tobacco dependence F17.200 Diabetes E11.9 Obesity E66.01; Z68.41 Body mass index: BMI 40.0-44.9 Obesity classification: adult class 3 (BMI >= 40) Obesity type: unspecified obesity type Serious obesity comorbidity presence: with serious comorbidity
--- NOTE | 2024-04-14 07:53 | PC.NURSE ---
Dr Webber here exam pt and disharge orders noted ...
[2024-04-14] MEDS: metoprolol succinate ER (24 HR) 25 mg Tablet PO (08:05)
[2024-04-14] MEDS: aspirin 81 mg Chew Tablet PO (08:05)
[2024-04-14] MEDS: clopidogrel 75 mg Tablet PO (08:05)
[2024-04-14 08:59] VITALS: BP 124/97; PULSE 75; RESP 19; TEMP 36.9; O2SAT 95
== END 2024-04-14 08:00 | disposition home or self-care (01) | DRG 322 ==
LOC: ER 23:34 → CCL 23:40 → ICU 04-13 00:16
PROVIDERS: Admitting Provider Internal Medicine Cardiovascular Disease; Emergency Provider Emergency Medicine; Visit Provider Internal Medicine Cardiovascular Disease
PROC: 027034Z Dilation of Coronary Artery, One Artery with Drug-eluting Intraluminal Device, Percutaneous Approach (ICD-10-PCS; principal; 2024-04-12 23:30)
PROC: 027034Z Dilation of Coronary Artery, One Artery with Drug-eluting Intraluminal Device, Percutaneous Approach (ICD-10-PCS; 2024-04-12 23:30)
DX: I21.11 ST elevation (STEMI) myocardial infarction involving right coronary artery (principal); Z68.41 Body mass index [BMI] 40.0-44.9, adult; F17.200 Nicotine dependence, unspecified, uncomplicated; E66.09 Other obesity due to excess calories; E11.9 Type 2 diabetes mellitus without complications; I25.119 Atherosclerotic heart disease of native coronary artery with unspecified angina pectoris
CPT/HCPCS: 36415; 36416; 36600; 71045; 80051; 80053; 81001; 82330; 82805; 82962; 83036; 83605; 83690; 84484; 85025; 86140; 93005; 93458; 96372; 96374; 96375; 99152; 99153; 99285; C1769; C1874; C1887; C1894; C9600; J1644; J1815; J2250; J2270; J2405; J3010; J3490; J7030; Q9967

== ENCOUNTER 2024-05-03 12:17 | Emergency (ER) | payer SELFPAY ==
--- NOTE | 2024-05-03 12:25 | ECG_ITS ---
[facility] Test Date: 2024-05-03 Pat Name: Cristiana Stephen Department: Room: Gender: Female Thread Inspector: : 1975 Requested By: Felipe Resendez Order Number: [id number] Guy MD: Kristopher Webber M.D. Measurements Intervals [place] Rate: 86 P: 21 WA: 149 QRS: -33 QRSD: 81 T: -58 QT: 357 QTc: 429 Interpretive Statements SINUS RHYTHM LOW QRS VOLTAGE IN PRECORDIAL LEADS [QRS DEFLECTION < 1.0 mV IN CHEST LEADS] PATTERN CONSISTENT WITH PULMONARY DISEASE POSSIBLE RIGHT VENTRICULAR CONDUCTION DELAY [RSR (QR) IN V1/V2] MODERATE T-WAVE ABNORMALITY, CONSIDER LATERAL ISCHEMIA [-0.1+ mV T-WAVE IN I/aVL/V5/V6] Compared to ECG 04/13/2024 04:49:40 Low QRS voltage now present T-wave abnormality now present Possible ischemia now present Left-axis deviation no longer present Myocardial infarct finding no longer present Electronically Signed On 05-03-2024 14:11:19 CDT by Kristopher Webber M.D. [id number]
--- NOTE | 2024-05-03 12:25 | XR_ITS ---
WS: [id number] Exam: XR chest 1V portable [id number] Date/Time of Exam: 05/03/2024 12:34 PM Reason For Exam: dyspnea/cough Comparison 04/12/2024. The lungs are fully inflated and clear. Heart size top limits normal. The mediastinum is normal in co ntour. Unremarkable bony elements. No pleural effusion. XR/XR chest 1V portable [id number] IMPRESSION: 1. No acute cardiopulmonary finding.
[2024-05-03 12:26] VITALS: BP 131/86; PULSE 93; RESP 18; TEMP 36.7; O2SAT 95; BMI 38.4
[2024-05-03] MEDS: aspirin 81 mg Chew Tablet 324 MG PO (12:40)
--- NOTE | 2024-05-03 12:43 | W.ED.CHESTPA ---
HPI - Chest Pain General: Chief Complaint: Chest Pain Stated Complaint: chest pain, back pain Time Seen by Provider: 05/03/24 12:23 Source: patient Mode of arrival: ambulatory History of Present Illness: 49-year-old female with a known history of coronary artery disease was in the emergency room 3 weeks ago with a STEMI and had a RCA stent placed for a inferior ST elevation [place]. She presents today after while being at work began having chest discomfort no radiation of the chest pain no shortness of breath. She was at work making sandwiches at a local fast [employer] when this began the time she resolved arrives here that is mostly resolved. She is still taking her clopidogrel regularly as well as aspirin. While she was hospitalized she was found to be a type II diabetic and started on metformin. Not having a significant amount of chest discomfort now. Her previous cath report was reviewed there were no other areas of significant stenosis at the time of heart cath. She did not take any nitro prior to arrival. MD complaint: chest pain Pertinent past history: coronary artery disease Timing of current episode: episodic Pain location: left chest Pain radiation: none Severity: mild Quality: aching and heaviness Relieving factors: nothing Exacerbating factors: nothing Associated symptoms: Deny abdominal pain, diaphoresis, dyspnea, fever(s), leg edema, nausea, palpitations, sense of impending doom, syncope or vomiting Treatment prior to arrival: none Review of Systems Const: Denies: fever(s), chills or diaphoresis Card: Denies: chest pain, palpitations or syncope Resp: Denies: dyspnea GI: Denies: abdominal pain, nausea or vomiting : Denies: dysuria, urinary frequency or urinary urgency Musc: Denies: neck pain or back pain Skin/Breast: Denies: rash PFSH ED PFSH: Medical History Hyperlipidemia Obesity Tobacco dependence ST elevation myocardial infarction (STEMI) Diabetes No pertinent family history Surgical History No pertinent past surgical history Social History Smoking and tobacco/nicotine status: current every day tobacco/nicotine user cigarettes [ Other cigarette details: 1/2 PPD, 30 PY] Alcohol intake: never Substance/Drug Use: current Adopted: Yes service: No Current occupational exposures/hazards: No Physical Exam Const: COMMON NORMALS: no acute distress GENERAL APPEARANCE: cooperative and comfortable ORIENTATION/CONSCIOUSNESS: Yes awake, Yes oriented to person, Yes oriented to place and Yes oriented to time HENMT: COMMON NORMALS: normocephalic, atraumatic and hearing grossly normal bilaterally HEAD & SCALP: normocephalic and atraumatic Resp: COMMON NORMALS: normal respiratory effort, No retractions, No use of accessory muscles and clear to auscultation bilaterally AUSCULTATION: clear to auscultation bilaterally Cardio: COMMON NORMALS: regular rate, regular rhythm and No murmurs present (Cardio) RATE: regular rate RHYTHM: regular rhythm GI: COMMON NORMALS: Soft to palpation and No hepatosplenomegaly present AUSCULTATION: Yes normoactive bowel sounds PALPATION: Yes Soft to palpation, No Tenderness to palpation present (GI), No Guarding due to palpation present (GI) and Yes No hepatosplenomegaly present Extremity: COMMON NORMALS: normal to inspection, capillary refill normal, no clubbing, cyanosis or edema, no calf tenderness and no pedal edema Neuro: SENSORIUM/ORIENTATION: Yes oriented to person, Yes oriented to place and Yes oriented to time Skin: COMMON NORMALS: no rashes or lesions noted GENERAL SKIN EXAM: no rashes or lesions noted Course Vital Signs: Vital signs: Vital Signs Temperature 98.1 F 05/03/24 12:26 Pulse Rate 76 05/03/24 15:29 Respiratory Rate 18 05/03/24 15:29 Blood Pressure 127/87 05/03/24 15:29 Pulse Oximetry 93 05/03/24 15:29 Oxygen Delivery Me thod Room Air 05/03/24 12:26 MDM - Chest Pain Medical Decision Making Labs and imaging reviewed. No acute EKG changes unchanged from previous EKG. Cardiac enzymes negative. Discussed with Dr. Webber who did her previous heart cath he does not feel any other intervention would be required at this time. Will add Imdur 30 mg daily decrease her metoprolol to 25 mg once a day. Continue atorvastatin aspirin and clopidogrel follow-up with cardiology clinic as soon as able if symptoms worsen recheck. Medical Records I reviewed the patient's medical records. Lab Data I reviewed the patient's lab results. 05/03/24 12:23 05/03/24 12:23 Radiology Impressions Chest X-Ray 05/03/24 12:25 IMPRESSION: 1. No acute cardiopulmonary finding. Laboratory Results WBC 9.04 10^3/uL (3.29-11.43) 05/03/24 12:23 RBC 4.82 10^6/uL (3.85-5.65) 05/03/24 12:23 Hgb 14.70 g/dL (11.27-16.99) 05/03/24 12:23 Hct 45.1 % (36-47) 05/03/24 12:23 MCV 93.6 fl (85-98) 05/03/24 12:23 MCH 30.5 pg (27-33) 05/03/24 12:23 MCHC 32.6 g/dL (30-55) 05/03/24 12:23 RDW 12.3 % (12.1-15.1) 05/03/24 12:23 Plt Count 279 10^3/cmm (157-399) 05/03/24 12:23 MPV 11.5 fL (7.4-10.4) H 05/03/24 12:23 Neut % (Auto) 62.8 % 05/03/24 12:23 Lymph % (Auto) 25.7 % 05/03/24 12:23 Angelina % (Auto) 7.1 % 05/03/24 12:23 Eos % (Auto) 3.4 % 05/03/24 12:23 Baso % (Auto) 0.7 % 05/03/24 12:23 Neut # (Auto) 5.68 10^3/uL (1.8-7.7) 05/03/24 12:23 Lymph # (Auto) 2.3 10^3/uL (0.8-4.8) 05/03/24 12:23 Angelina # (Auto) 0.6 10^3/uL (0.2-0.9) 05/03/24 12:23 Eos # (Auto) 0.3 10^3/uL (0.0-0.8) 05/03/24 12:23 Baso # (Auto) 0.1 10^3/uL (0.0-0.1) 05/03/24 12:23 Nucleated RBC % (auto) 0 % 05/03/24 12:23 Nucleated RBCs # 0.0 /100WBC 05/03/24 12:23 Sodium 138 mmol/L (136-145) 05/03/24 12:23 Potassium 4.5 mmol/L (3.5-5.1) 05/03/24 12:23 Chloride 102 mmol/L (98-107) 05/03/24 12:23 Carbon Dioxide 25 mmol/L (22-29) 05/03/24 12:23 Anion Gap 15.5 (5-19) 05/03/24 12:23 BUN 14 mg/dL (6-20) 05/03/24 12:23 Creatinine 0.7 mg/dL (0.5-0.9) 05/03/24 12:23 GFR Calculation 88.9 mL/min (90-130) L 05/03/24 12:23 Glucose 128 mg/dL (65-115) H 05/03/24 12:23 Calculated Osmolality 288 mOsm/kg (285-295) 05/03/24 12:23 Calcium 8.9 mg/dL (8.5-10.5) 05/03/24 12:23 Total Bilirubin 0.3 mg/dL (0.15-1.2) 05/03/24 12:23 AST 13 U/L (0-32) 05/03/24 12:23 ALT 15 U/L (0-33) 05/03/24 12:23 Alkaline Phosphatase 85 U/L (35-105) 05/03/24 12:23 Troponin T Baseline 11 ng/L (0-10) H 05/03/24 12:23 Troponin T 120 Minute 10.87 ng/L (0-10) H 05/03/24 14:08 Delta Troponin T -0.13 ABS# (0-10) L 05/03/24 14:08 Total Protein 6.2 g/dL (6.6-8.7) L 05/03/24 12:23 Albumin 3.9 g/dL (3.5-5.2) 05/03/24 12:23 Globulin 2.3 g/dL (1.3-4.6) 05/03/24 12:23 Urine Color Yellow (Yellow) 05/03/24 13:16 Urine Appearance Cloudy (CLEAR) A 05/03/24 13:16 Urine pH 5 (5-7) 05/03/24 13:16 Ur Specific [place] 1.025 (1.005-1.030) 05/03/24 13:16 Urine Protein Neg (Negative) 05/03/24 13:16 Urine Glucose (UA) Norm (Normal) 05/03/24 13:16 Urine Ketones 1+ (Negative) H 05/03/24 13:16 Urine Blood Neg (Negative) 05/03/24 13:16 Urine Nitrate Negative (Negative) 05/03/24 13:16 Urine Bilirubin Neg (Negative) 05/03/24 13:16 Urine Urobilinogen 1 mg/dL (Negative) H 05/03/24 13:16 Ur Leukocyte Esterase 1+ (Negative) H 05/03/24 13:16 Urine RBC None /hpf (0-2) 05/03/24 13:16 Urine WBC 5-10 /hpf (0-5) H 05/03/24 13:16 Ur Squamous Epith Cells 55-80 /hpf (0-5) H 05/03/24 13:16 Amorphous Sediment Not Reportable 05/03/24 13:16 Urine Bacteria 2+ /hpf (NONE) H 05/03/24 13:16 Urine Mucus 1+ /hpf 05/03/24 13:16 Urine Trichomonas 2+ /hpf H 05/03/24 13:16 All radiology interpretation(s) finalized by discharge Discharge Plan Discharge Patient Disposition: Home Clinical Impression: Atypical chest pain Condition: Stable Prescriptions: New isosorbide mononitrate 30 mg tablet extended release 24 hr 30 mg PO DAILY Qty: 30 0RF Changed metoprolol succinate 25 mg Tablet Extended Release 24 Hr 25 mg PO DAILY Qty: 30 0RF No Action atorvastatin 40 mg tablet 80 mg PO BEDTIME Qty: 90 0RF nitroglycerin 0.4 mg Tablet, Sublingual 0.4 mg sublingual Q5M PRN (Reason: Chest Pain) Qty: 25 0RF metformin 500 mg tablet 500 mg PO QPM clopidogrel 75 mg tablet 75 mg PO QAM aspirin 81 mg tablet,chewable 81 mg PO QAM Discharge Orders: Discharge ED (Routine); Ordered 05/03/24 Ordered By: Felipe Frazier Referrals: Naveed Cheng MD [Primary Care Provider] - Discharge Diet: Usual diet Discharge Activity: Limit activity as instructed Patient Instructions: Opioid Safety, Pain Management Activity Restrictions/Additional Instructions: Thank you for choosing [facility] for your healthcare needs today. It is very important that you follow up as instructed or that you return to the Emergency Department should you have concerns or if your condition changes or worsens in any way. You were seen today with complaints of chest discomfort. Cardiac enzymes and EKG does not show any acute abnormality. Your EKG does not show any changes from previous EKGs. Your cardiac enzymes today were normal. Reviewed your case with marble setter helper who placed her stents Dr. Webber. He does not feel at this time require return trip to the cardiac Computer Security Manager. We recommend adding Imdur 30 mg once daily and decreasing her metoprolol to 25 mg once a day. You should follow-up in the cardiology clinic as soon as you are able recommend calling to establish an appointment for follow-up. Coding Level of Care Code ED Business Office Associate for Merari Hutchinson
[2024-05-03 12:47] LABS: Basophils # 0.1 10^3/uL (0.0-0.1); Basophils % 0.7 %; Eosinophils # 0.3 10^3/uL (0.0-0.8); Eosinophils % 3.4 %; Hematocrit 45.1 % (36-47); Lymphocytes # 2.3 10^3/uL (0.8-4.8); Lymphocytes % 25.7 %; Mean Corpuscular HGB Conc 32.6 g/dL (30-55); Mean Corpuscular Hemoglobin 30.5 pg (27-33); Mean Corpuscular Volume 93.6 fl (85-98); Mean Platelet Volume 11.5 fL (7.4-10.4); Monocytes # 0.6 10^3/uL (0.2-0.9); Monocytes % 7.1 %; Neutrophils # 5.68 10^3/uL (1.8-7.7); Neutrophils % 62.8 %; Nucleated Red Blood Cells % 0 %; Platelet Count 279 10^3/cmm (157-399); Red Blood Count 4.82 10^6/uL (3.85-5.65); Red Cell Distribution Width 12.3 % (12.1-15.1); White Blood Count 9.04 10^3/uL (3.29-11.43)
[2024-05-03 13:00] VITALS: BP 120/78; PULSE 83; RESP 16; O2SAT 95
[2024-05-03 13:03] LABS: Troponin(5th) Baseline 11 ng/L (0-10)
[2024-05-03 13:05] LABS: Alanine Aminotransferase 15 U/L (0-33); Albumin Level 3.9 g/dL (3.5-5.2); Alkaline Phosphatase 85 U/L (35-105); Anion Gap 15.5 (5-19); Aspartate Amino Transferase 13 U/L (0-32); Blood Urea Nitrogen 14 mg/dL (6-20); Calcium 8.9 mg/dL (8.5-10.5); Carbon Dioxide 25 mmol/L (22-29); Chloride 102 mmol/L (98-107); Creatinine Clr Calc Pharmacy 108.6768; Globulin 2.3 g/dL (1.3-4.6); Glomerular Filtration Rate 88.9 mL/min (90-130); Glucose 128 mg/dL (65-115); Osmolality Calculated 288 mOsm/kg (285-295); Potassium 4.5 mmol/L (3.5-5.1); Sodium 138 mmol/L (136-145); Total Bilirubin 0.3 mg/dL (0.15-1.2); Total Protein 6.2 g/dL (6.6-8.7)
[2024-05-03 13:30] VITALS: BP 124/72; PULSE 78; RESP 16; O2SAT 92
[2024-05-03 13:40] LABS: Add Urine Microscopic? YES; Bilirubin Urine Neg (Negative); Blood Urine Neg (Negative); Glucose Urine UA Norm (Normal); Ketones Urine 1+ (Negative); Leukocyte Esterase Urine 1+ (Negative); Nitrate Urine Negative (Negative); Protein Urine Neg (Negative); Specific Gravity, Urine 1.025 (1.005-1.030); Urine Appearance Cloudy (CLEAR); Urine Color Yellow (Yellow); Urobilinogen Urine 1 mg/dL (Negative); pH Urine 5 (5-7)
[2024-05-03 13:48] LABS: Squamous Epithelial Cell Urine 55-80 /hpf (0-5)
[2024-05-03 13:49] LABS: Add Urine Culture? Yes; Bacteria Urine 2+ /hpf; Mucus Urine 1+ /hpf; Trichomonas Urine 2+ /hpf
--- NOTE | 2024-05-03 14:13 | ECG_ITS ---
[facility] Test Date: 2024-05-03 Pat Name: Cristiana Stephen Department: Room: Gender: Female Patient Support Specialist: : 1975 Requested By: Felipe Resendez Order Number: [id number] Guy MD: Yosi Underwood M.D. Measurements Intervals [place] Rate: 77 P: 23 RI: 146 QRS: -31 QRSD: 85 T: -58 QT: 380 QTc: 432 Interpretive Statements SINUS RHYTHM POSSIBLE RIGHT VENTRICULAR CONDUCTION DELAY [RSR (QR) IN V1/V2] INFERIOR MYOCARDIAL INFARCTION , OF INDETERMINATE AGE [40+ ms Q WAVE AND/OR ST/T ABNORMALITY IN II/aVF] Compared to ECG 05/03/2024 12:24:39 Myocardial infarct finding now present T-wave abnormality no longer present Possible ischemia no longer present Electronically Signed On 05-04-2024 20:46:12 CDT by Yosi Underwood M.D. [id number]
[2024-05-03 14:17] VITALS: BP 135/79; PULSE 76; RESP 16; O2SAT 92
[2024-05-03 14:34] LABS: Troponin 5 2HR 10.87 ng/L (0-10)
[2024-05-03 14:39] LABS: Troponin 5 2HR Delta -0.13 ABS# (0-10)
[2024-05-03 15:11] VITALS: BP 107/72; PULSE 74; RESP 16; O2SAT 94
[2024-05-03 15:29] VITALS: BP 127/87; PULSE 76; RESP 18; O2SAT 93
== END 2024-05-03 15:26 | disposition home or self-care (01) ==
PROVIDERS: Emergency Provider Family Medicine; PCP Family Medicine
DX: R07.89 Other chest pain (principal); Z79.02 Long term (current) use of antithrombotics/antiplatelets; Z79.82 Long term (current) use of aspirin; Z79.84 Long term (current) use of oral hypoglycemic drugs; E78.5 Hyperlipidemia, unspecified; I25.2 Old myocardial infarction; F17.210 Nicotine dependence, cigarettes, uncomplicated
CPT/HCPCS: 36415; 71045; 80053; 81001; 84484; 85025; 87086; 93005; 99285

== ENCOUNTER → 2024-09-10 11:35 | Outpatient (BNVA) | payer SELFPAY | PROVIDERS: PCP Family Medicine; Visit Provider Family Medicine | DX: E11.9 Type 2 diabetes mellitus without complications (principal) | CPT/HCPCS: 80053; 80061; 83036; 84439; 84443 ==

== ENCOUNTER 2024-11-20 20:36 | Emergency (ER) | payer SELFPAY ==
[2024-11-20] VITALS (8 sets, daily range): BP systolic 108–125; BP diastolic 72–86; PULSE 67–110; RESP 16–20; TEMP 37.1–39; O2SAT 90–98; BMI 37.2
--- NOTE | 2024-11-20 20:38 | XRR_ITS ---
PROCEDURE INFORMATION: Exam: XR Chest Exam date and time: 11/20/2024 8:51 PM Age: 49 years old Clinical indication: Cough TECHNIQUE: Imaging protocol: Radiologic exam of the chest. Views: 1 view. COMPARISON: CR XR chest 1V portable [id number] 05/03/2024 12:37 PM FINDINGS: Lungs: Unremarkable. No consolidation. Pleural spaces: Unremarkable. No pleural effusion. No pneumothorax. Heart/Mediastinum: Unremarkable. No cardiomegaly. Bones/joints: Unremarkable. XR/XR chest 1V portable [id number] IMPRESSION: No acute findings.
--- NOTE | 2024-11-20 21:27 | ED_ITS ---
HPI - Fever 2 General: Chief Complaint: Fever Stated Complaint: Fever,Coughing Time Seen by Provider: 11/20/24 20:50 Source: patient Mode of arrival: ambulatory Limitations: no limitations History of Present Illness: Patient is a 49-year-old female with past medical history of coronary artery disease and diabetes who presents the emergency department complaining of multiple symptoms onset today. Patient notes possible sick contact exposure at work. She is reporting fevers throughout the day, has taken 1 g of Tylenol. Also reporting cough, nausea, body aches, and mild shortness of breath. Reports that her cough has been productive. She does arrive with a temperature 102.2, tachycardic. No chest pain, peripheral edema, orthopnea, or other symptoms. MD elicited complaint: fever Pertinent past history: diabetes Onset (ago): hour(s) Context: sick contacts Associated symptoms: Reports nausea; Deny abdominal pain, flank pain, chills, chest pain, diarrhea, dysuria, headache(s) or vomiting Treatments prior to arrival fever: acetaminophen Related Data Previous Rx's Medication Instructions Recorded aspirin 81 mg chewable tablet 81 mg PO QAM #30 tabs 06/08/24 nitroglycerin 0.4 mg sublingual 0.4 mg sublingual Q5M PRN Chest 06/08/24 tablet Pain #25 tabs metoprolol succinate 25 mg 25 mg PO DAILY #30 tabs 09/04/24 tablet,extended release 24 hr isosorbide mononitrate 30 mg 30 mg PO DAILY #90 tabs 10/17/24 tablet,extended release 24 hr atorvastatin 40 mg tablet 80 mg (2 x 40 mg) PO BEDTIME #180 11/08/24 tabs clopidogrel 75 mg tablet 75 mg PO QAM #90 tabs 11/08/24 metformin 500 mg tablet 500 mg PO QPM #90 tabs 11/08/24 albuterol sulfate 90 mcg/actuation 1 inh inhalation Q6H PRN shortness 11/20/24 aerosol inhaler of breath or wheezing #6.7 grams benzonatate 100 mg capsule 100 mg PO BID PRN cough #20 caps 11/20/24 ondansetron HCl 4 mg tablet 4 mg PO Q8H #30 tabs 11/20/24 oseltamivir 75 mg capsule (Tamiflu) 75 mg PO BID 5 days #10 caps 11/20/24 Allergies Allergy/AdvReac Type Severity Reaction Status Date / Time No Known Allergies Allergy Verified 11/20/24 20:45 Review of Systems 2 General: Reports: 10 or more systems reviewed and unremarkable except in HPI and below Const: Reports: fever(s) and body aches; Denies: chills or fatigue Eyes: Denies: change in vision ENMT: Denies: throat pain, ear or mastoid pain or nasal discharge Card: Denies: chest pain, palpitations, swelling of feet/ankles or lightheadedness Resp: Reports: dyspnea and productive cough; Denies: wheezing GI: Reports: nausea; Denies: abdominal pain, vomiting, diarrhea or constipation : Denies: flank pain, difficulty voiding, dysuria or urinary frequency Musc: Denies: neck pain, back pain or joint pain Skin/Breast: Denies: rash Neuro: Denies: headache(s), numbness in extremities or weakness in extremities PFSH ED 2 PFSH: Medical History Obesity, Class II, BMI 35-39.9, no comorbidity CAD (coronary artery disease) Hyperlipidemia Obesity Tobacco dependence ST elevation myocardial infarction (STEMI) Diabetes No pertinent family history Surgical History S/P right coronary artery (RCA) stent placement No pertinent past surgical history Family History Mother Heart disease Social History Smoking and tobacco/nicotine status: current every day tobacco/nicotine user (0.5 ppd) cigarettes [ Other cigarette details: 1/2 PPD, 30 PY] Alcohol intake: never Substance/Drug Use: current Adopted: Yes service: No Current occupational exposures/hazards: No Physical Exam 2 Const: COMMON NORMALS: no acute distress, patient oriented x3 and no limitations GENERAL APPEARANCE: cooperative, comfortable and well developed ORIENTATION/CONSCIOUSNESS: Yes awake, Yes oriented to person, Yes oriented to place and Yes oriented to time HENMT: COMMON NORMALS: normocephalic, atraumatic, hearing grossly normal bilaterally, moist oral mucous membranes and oropharynx normal HEAD & SCALP: normocephalic and atraumatic Eye: COMMON NORMALS: Equal, round and reactive pupils present, EOMs intact bilaterally and conjunctivae normal CONJUNCTIVA: Yes conjunctivae normal P UPIL: Yes Equal, round and reactive pupils present Neck/C-Spine: COMMON NORMALS: full ROM, supple and no JVD Resp: COMMON NORMALS: normal respiratory effort, No retractions, No use of accessory muscles and clear to auscultation bilaterally AUSCULTATION: clear to auscultation bilaterally Cardio: COMMON NORMALS: no JVD, regular rhythm, No clicks present (Cardio), No murmurs present (Cardio) and No rub (Cardio) RATE: tachycardic RHYTHM: r egular rhythm GI: COMMON NORMALS: Normal to inspection, nondistended, normoactive bowel sounds present, Soft to palpation and non-tender AUSCULTATION: Yes normoactive bowel sounds PALPATION: Yes Soft to palpation RECTAL EXAM: d eferred Extremity: COMMON NORMALS: normal to inspection, full ROM and capillary refill normal Neuro: COMMON NORMALS: patient oriented x3, moves all extremities, no focal motor deficits and no sensory deficits noted SENSORIUM/ORIENTATION: Yes oriented to person, Yes oriented to place and Yes oriented to time Psych: COMMON NORMALS: mental status grossly normal and Normal thought process present THOUGHT PROCESS: Normal thought process present Skin: COMMON NORMALS: no rashes or lesions noted GENERAL SKIN EXAM: no rashes or lesions noted Course 2 Vital Signs: Vital signs: Vital Signs Temperature 98.8 F 11/20/24 22:19 Pulse Rate 89 11/20/24 23:26 Respiratory Rate 16 11/20/24 23:26 Blood Pressure 108/83 11/20/24 23:26 Pulse Oximetry 98 11/20/24 23:26 Oxygen Delivery Me thod Room Air 11/20/24 23:10 Oxygen Flow Rate 2 11/20/24 22:50 MDM - Fever Medical Decision Making Patient presented with respiratory symptoms, febrile on arrival tachycardic. Was placed on 2 L of oxygen after found to drop below 90% on room air. She was given a breathing treatment is brought back to 94 to 96%. History of coronary artery disease and diabetes. With her hypoxia and vitals ordered labs, these were unremarkable. She did test positive for flu A, no pneumonia on x-ray. She does feel better after Zofran and Tessalon Perles, as well as a DuoNeb. At this time comfortable for discharge home on Tamiflu as her symptoms began less than 48 hours ago. Does not meet admissions criteria at this time but told her to return with worsening breathing or other concerning symptoms. She agrees with this plan will be discharged home. Discussed case briefly with Dr. Shepard. Lab Data 11/20/24 22:41 11/20/24 22:41 Radiology Impressions Chest X-Ray 11/20/24 20:38 IMPRESSION: No acute findings. Laboratory Results WBC 7.84 10^3/uL (3.29-11.43) 11/20/24 22:41 RBC 4.92 10^6/uL (3.85-5.65) 11/20/24 22:41 Hgb 15.30 g/dL (11.27-16.99) 11/20/24 22:41 Hct 45.8 % (36-47) 11/20/24 22:41 MCV 93.1 fl (85-98) 11/20/24 22:41 MCH 31.1 pg (27-33) 11/20/24 22:41 MCHC 33.4 g/dL (30-55) 11/20/24 22:41 RDW 13.1 % (12.1-15.1) 11/20/24 22:41 Plt Count 234 10^3/cmm (157-399) 11/20/24 22:41 MPV 11.7 fL (7.4-10.4) H 11/20/24 22:41 Neut % (Auto) 75.6 % 11/20/24 22:41 Lymph % (Auto) 9.9 % 11/20/24 22:41 [place] % (Auto) 13.3 % 11/20/24 22:41 Eos % (Auto) 0.6 % 11/20/24 22:41 Baso % (Auto) 0.5 % 11/20/24:41 Neut # (Auto) 5.92 10^3/uL (1.8-7.7) 11/20/24 22:41 Lymph # (Auto) 0.8 10^3/uL (0.8-4.8) 11/20/24 22:41 [place] # (Auto) 1.0 10^3/uL (0.2-0.9) H 11/20/24 22:41 Eos # (Auto) 0.1 10^3/uL (0.0-0.8) 11/20/24 22:41 Baso # (Auto) 0.0 10^3/uL (0.0-0.1) 11/20/24 22:41 Nucleated RBC % (auto) 0 % 11/20/24 22:41 Nucleated RBCs # 0.0 /100WBC 11/20/24 22:41 Sodium 134 mmol/L (136-145) L 11/20/24 22:41 Potassium 4.0 mmol/L (3.5-5.1) 11/20/24 22:41 Chloride 98 mmol/L (98-107) 11/20/24 22:41 Carbon Dioxide 24 mmol/L (22-29) 11/20/24 22:41 Anion Gap 16.0 (5-19) 11/20/24 22:41 BUN 7 mg/dL (6-20) 11/20/24 22:41 Creatinine 0.6 mg/dL (0.5-0.9) 11/20/24 22:41 GFR Calculation 106.3 mL/min (90-130) 11/20/24 22:41 Glucose 118 mg/dL (65-115) H 11/20/24 22:41 Calculated Osmolality 277 mOsm/kg (285-295) L 11/20/24 22:41 Lactic Acid 0.8 mmol/L (0.5-2.2) 11/20/24 22:41 Calcium 8.8 mg/dL (8.5-10.5) 11/20/24 22:41 Total Bilirubin 0.4 mg/dL (0.15-1.2) 11/20/24 22:41 AST 12 U/L (0-32) 11/20/24 22:41 ALT 14 U/L (0-33) 11/20/24 22:41 Alkaline Phosphatase 95 U/L (35-105) 11/20/24 22:41 C-Reactive Protein 11.8 mg/L (0.0-4.9) H 11/20/24 22:41 Total Protein 6.8 g/dL (6.6-8.7) 11/20/24 22:41 Albumin 4.1 g/dL (3.5-5.2) 11/20/24 22:41 Globulin 2.7 g/dL (1.3-4.6) 11/20/24 22:41 Urine Color Yellow (Yellow) 11/20/24 22:08 Urine Appearance Clear (CLEAR) 11/20/24 22:08 Urine pH 6.0 (5-7) 11/20/24 22:08 Ur Specific [place] 1.012 (1.005-1.030) 11/20/24 22:08 Urine Protein Negative (Negative) 11/20/24 22:08 Urine Glucose (UA) Negative (Normal) 11/20/24 22:08 Urine Ketones Negative (Negative) 11/20/24 22:08 Urine Blood Negative (Negative) 11/20/24 22:08 Urine Nitrate Negative (Negative) 11/20/24 22:08 Urine Bilirubin Negative (Negative) 11/20/24 22:08 Urine Urobilinogen 0.2 mg/dL (Negative) 11/20/24 22:08 Ur Leukocyte Esterase Negative (Negative) 11/20/24 22:08 Urine RBC 0-2 /hpf (0-2) 11/20/24 22:08 Urine WBC 0-5 /hpf (0-5) 11/20/24 22:08 Ur Squamous Epith Cells 0-5 /hpf (0-5) 11/20/24 22:08 Amorphous Sediment Not Reportable 11/20/24 22:08 Urine Bacteria None seen /hpf (NONE) 11/20/24 22:08 Hyaline Casts 0-4 /lpf H 11/20/24 22:08 Coronavirus (PCR) Negative (Negative) 11/20/24 21:26 Influenza A (PCR) Positive (Negative) 11/20/24 21:26 Influenza Type B (PCR) Negative (Negative) 11/20/24 21:26 RSV (PCR) Negative (Negative) 11/20/24 21:26 All radiology interpretation(s) finalized by discharge Discharge Plan Discharge Patient Disposition: Home Clinical Impression: Influenza A Condition: Stable Prescriptions: New oseltamivir [Tamiflu] 75 mg capsule 75 mg PO BID 5 Days Qty: 10 0RF benzonatate 100 mg capsule 100 mg PO BID PRN (Reason: cough) Qty: 20 0RF albuterol sulfate 90 mcg/actuation HFA aerosol inhaler 1 inh inhalation Q6H PRN (Reason: shortness of breath or wheezing) Qty: 6.7 0RF ondansetron HCl 4 mg tablet 4 mg PO Q8H Qty: 30 0RF No Action aspirin 81 mg tablet,chewable 81 mg PO QAM Qty: 30 3RF nitroglycerin 0.4 mg tablet, sublingual 0.4 mg sublingual Q5M PRN (Reason: Chest Pain) Qty: 25 0RF metoprolol succinate 25 mg tablet extended release 24 hr 25 mg PO DAILY Qty: 30 3RF isosorbide mononitrate 30 mg tablet extended release 24 hr 30 mg PO DAILY Qty: 90 0RF clopidogrel 75 mg tablet 75 mg PO QAM Qty: 90 1RF atorvastatin 40 mg tablet 80 mg PO BEDTIME Qty: 180 1RF metformin 500 mg tablet 500 mg PO QPM Qty: 90 1RF Discharge Orders: Discharge ED (Routine); Ordered 11/20/24 Ordered By: Shivam Jimenez Referrals: Naveed Cheng MD [Primary Care Provider] - Patient Instructions: Influenza (ED) Activity Restrictions/Additional Instructions: Take Tamiflu as prescribed. Drink plenty of fluids. Tylenol and ibuprofen for fevers and bodyaches. Please follow-up with primary care. Return with any worsening of breathing or other concerning symptoms. Stand Alone Forms: Work/School Release Coding Level of Care Code ED Checker Loader for Merari Hutchinson
[2024-11-20] MEDS: ondansetron 4 MG Tablet PO (21:36)
[2024-11-20] MEDS: benzonatate 100 mg Capsule PO (21:36)
[2024-11-20 22:18] LABS: Covid PCR NEGATIVE (Negative); Influenza A POSITIVE (Negative); Influenza B NEGATIVE (Negative); Respiratory Syncytial Virus Ce NEGATIVE (Negative)
[2024-11-20 22:24] LABS: Bilirubin Urine Negative (Negative); Blood Urine Negative (Negative); Glucose Urine UA Negative (Normal); Ketones Urine Negative (Negative); Leukocyte Esterase Urine Negative (Negative); Nitrate Urine Negative (Negative); Protein Urine Negative (Negative); Specific Gravity, Urine 1.012 (1.005-1.030); Urine Appearance Clear (CLEAR); Urine Color Yellow (Yellow); Urobilinogen Urine 0.2 mg/dL (Negative)
[2024-11-20 22:29] LABS: Add Urine Microscopic? YES; Bacteria Urine None Seen /hpf; Hyaline Casts Urine 0-4 /lpf; RBC Urine 0-2 /hpf (0-2); Squamous Epithelial Cell Urine 0-5 /hpf (0-5); WBC Urine 0-5 /hpf (0-5)
[2024-11-20] MEDS: oseltamivir phosphate 75 mg Capsule PO (22:32)
[2024-11-20 22:45] LABS: Basophils % 0.5 %; Eosinophils # 0.1 10^3/uL (0.0-0.8); Eosinophils % 0.6 %; Hematocrit 45.8 % (36-47); Lymphocytes # 0.8 10^3/uL (0.8-4.8); Lymphocytes % 9.9 %; Mean Corpuscular HGB Conc 33.4 g/dL (30-55); Mean Corpuscular Hemoglobin 31.1 pg (27-33); Mean Corpuscular Volume 93.1 fl (85-98); Mean Platelet Volume 11.7 fL (7.4-10.4); Monocytes % 13.3 %; Neutrophils # 5.92 10^3/uL (1.8-7.7); Neutrophils % 75.6 %; Nucleated Red Blood Cells % 0 %; Platelet Count 234 10^3/cmm (157-399); Red Blood Count 4.92 10^6/uL (3.85-5.65); Red Cell Distribution Width 13.1 % (12.1-15.1); White Blood Count 7.84 10^3/uL (3.29-11.43)
[2024-11-20] MEDS: ipratropium-albuterol 3 mL Neb INHALATION (22:50)
[2024-11-20 23:05] LABS: Alanine Aminotransferase 14 U/L (0-33); Albumin Level 4.1 g/dL (3.5-5.2); Alkaline Phosphatase 95 U/L (35-105); Aspartate Amino Transferase 12 U/L (0-32); Blood Urea Nitrogen 7 mg/dL (6-20); C Reactive Protein 11.8 mg/L (0.0-4.9); Calcium 8.8 mg/dL (8.5-10.5); Carbon Dioxide 24 mmol/L (22-29); Chloride 98 mmol/L (98-107); Creatinine Clr Calc Pharmacy 124.5149; Globulin 2.7 g/dL (1.3-4.6); Glomerular Filtration Rate 106.3 mL/min (90-130); Glucose 118 mg/dL (65-115); Osmolality Calculated 277 mOsm/kg (285-295); Sodium 134 mmol/L (136-145); Total Bilirubin 0.4 mg/dL (0.15-1.2); Total Protein 6.8 g/dL (6.6-8.7)
[2024-11-20 23:06] LABS: Lactic Sepsis W/Reflex 0.8 mmol/L (0.5-2.2)
== END 2024-11-20 23:35 | disposition home or self-care (01) ==
PROVIDERS: Emergency Provider Physician Assistant; PCP Family Medicine
DX: J10.1 Influenza due to other identified influenza virus with other respiratory manifestations (principal); Z11.52 Encounter for screening for COVID-19; Z79.02 Long term (current) use of antithrombotics/antiplatelets; Z79.84 Long term (current) use of oral hypoglycemic drugs; Z79.82 Long term (current) use of aspirin; F17.210 Nicotine dependence, cigarettes, uncomplicated; I25.10 Atherosclerotic heart disease of native coronary artery without angina pectoris; E11.9 Type 2 diabetes mellitus without complications; E78.5 Hyperlipidemia, unspecified
CPT/HCPCS: 36415; 71045; 80053; 81001; 83605; 85025; 86140; 87637; 94640; 99284; Q0162

== ENCOUNTER 2025-02-22 09:10 | Emergency (ER) | payer SELFPAY ==
[2025-02-22 09:15] VITALS: BP 124/90; PULSE 88; RESP 17; TEMP 36.9; O2SAT 98; BMI 37.2
--- NOTE | 2025-02-22 09:17 | XR_ITS ---
WS: [id number] Portable AP upright chest, 02/22/2025 Clinical Data: chest pain Comparison: Portable chest, 11/20/2024 Findings: No nodules, masses or effusions are seen. The heart is slightly enlarged. The pulmonary vascularity is not increased. No pneumonia or pneumothorax is seen. Monitor leads are on the chest wall. XR/XR chest 1V portable [id number] Impression: Cardiomegaly.
--- NOTE | 2025-02-22 09:17 | ECG_ITS ---
[facility] Test Date: 2025-02-22 Pat Name: Cristiana Stephen Department: Room: Gender: Female Beach Expert: : 1975 Requested By: Chitra Yepez Order Number: [id number] Guy MD: Laurel Moon M.D. Measurements Intervals [place] Rate: 86 P: 42 LA: 155 QRS: 25 QRSD: 81 T: -9 QT: 352 QTc: 423 Interpretive Statements SINUS RHYTHM INDETERMINATE AXIS POSSIBLE RIGHT VENTRICULAR CONDUCTION DELAY [RSR (QR) IN V1/V2] Nonspecific ST changes Compared to ECG 05/03/2024 14:13:30 Indeterminate axis now present Myocardial infarct finding no longer present Electronically Signed On 02-23-2025 13:25:10 CDT by Laurel Moon M.D. [id number]
--- NOTE | 2025-02-22 09:25 | W.ED.CHESTPA ---
HPI - Chest Pain General: Chief Complaint: Chest Pain Stated Complaint: on/off chest pains Time Seen by Provider: 02/22/25 09:16 Source: patient Mode of arrival: ambulatory Limitations: no limitations History of Present Illness: Patient is a 49-year-old female who presents to ED today with a complaint of intermittent chest pains over the past several days. She denies any alleviating or worsening factors to her symptoms although later states that sometimes deep breathing will help. She states when chest pains come on, they are located substernally and off to the right and seem to last for 10 to 15 minutes before subsiding on their own. No shortness of breath or difficulty breathing. No hemoptysis. No recent surgeries. She does report a previous MA last year (inferior STEMI April 2024) with subsequent cardiac catheterization and stent placement. She has been compliant with her cardiac medications. She does have upcoming appointment with cardiology scheduled in early March. At time of my examination, she is not having any discomfort. She appears in no acute distress with stable vital signs. MD complaint: chest pain Pertinent past history: coronary artery disease Onset (ago): day(s) Timing of current episode: episodic Prior episodes: Yes Onset: during rest Pain location: substernal and right chest Pain radiation: none Relieving factors: other (deep breathing) Exacerbating factors: nothing Associated symptoms: Deny abdominal pain, dyspnea, fever(s), nausea, palpitations, syncope or vomiting Treatment prior to arrival: none Risk Factors: Thoracic aortic dissection risk factors: none Related Data Home Medications ?Medication ?Instructions ?Recorded ?Confirmed acetaminophen 500 mg tablet 1,000 mg PO Q6H PRN Fever Or Pain 02/22/25 02/22/25 (Tylenol Extra Strength) Previous Rx's ?Medication ?Instructions ?Recorded aspirin 81 mg chewable tablet 81 mg PO QAM #30 tabs 06/08/24 nitroglycerin 0.4 mg sublingual 0.4 mg sublingual Q5M PRN Chest 06/08/24 tablet Pain #25 tabs metoprolol succinate 25 mg 25 mg PO DAILY #30 tabs 09/04/24 tablet,extended release 24 hr atorvastatin 40 mg tablet 80 mg (2 x 40 mg) PO BEDTIME #180 11/08/24 tabs clopidogrel 75 mg tablet 75 mg PO QAM #90 tabs 11/08/24 metformin 500 mg tablet 500 mg PO QPM #90 tabs 11/08/24 albuterol sulfate 90 mcg/actuation 1 inh inhalation Q6H PRN shortness 11/20/24 aerosol inhaler of breath or wheezing #6.7 grams isosorbide mononitrate 30 mg 30 mg PO DAILY #90 tabs 01/22/25 tablet,extended release 24 hr Allergies Allergy/AdvReac Type Severity Reaction Status Date / Time No Known Allergies Allergy Verified 11/20/24 20:45 Review of Systems Const: Denies: fever(s) or chills Eyes: Denies: change in vision or blurry vision Card: Reports: chest pain; Denies: palpitations, irregular heart rhythm, edema, swelling of feet/ankles, lightheadedness, syncope, pre-syncope, dyspnea on exertion, orthopnea, leg pain with exertion or acrocyanosis Resp: Denies: dyspnea, productive cough or pain on inspiration GI: Denies: abdominal pain, nausea, vomiting, heartburn or diarrhea : Denies: dysuria Musc: Denies: neck pain, back pain or joint pain Skin/Breast: Denies: rash Neuro: Denies: headache(s), numbness in extremities, weakness in extremities, sensory changes or dizziness PFSH ED PFSH: Medical History Obesity, Class II, BMI 35-39.9, no comorbidity CAD (coronary artery disease) Hyperlipidemia Obesity Tobacco dependence ST elevation myocardial infarction (STEMI) Diabetes No pertinent family history Surgical History S/P right coronary artery (RCA) stent placement No pertinent past surgical history Family History Mother Heart disease Social History Smoking and tobacco/nicotine status: current every day tobacco/nicotine user (0.5 ppd) cigarettes [ Other cigarette details: 1/2 PPD, 30 PY] Alcohol intake: never Substance/Drug Use: current Adopted: Yes service: No Current occupational exposures/hazards: No Physical Exam Const: COMMON NORMALS: no acute distress, patient oriented x3, no limitations, alert and well nourished GENERAL APPEARANCE: cooperative NUTRITIONAL APPEARANCE: overweight ORIENTATION/CONSCIOUSNESS: Yes awake, Yes oriented to person, Yes oriented to place and Yes oriented to time HENMT: COMMON NORMALS: normocephalic and atraumatic HEAD & SCALP: normocephalic and atraumatic Neck/C-Spine: COMMON NORMALS: full ROM, no lymphadenopathy, supple, no meningeal signs and no JVD Chest: COMMONS NORMALS: normal inspection of the chest OTHER: minor reproducible pain R anterior upper chest wall Resp: COMMON NORMALS: normal respiratory effort and clear to auscultation bilaterally AUSCULTATION: clear to auscultation bilaterally Cardio: COMMON NORMALS: no JVD, regular rate and regular rhythm RATE: regular rate RHYTHM: regular rhythm GI: COMMON NORMALS: Normal to inspection, nondistended, normoactive bowel sounds present, Soft to palpation, non-tender, No hepatosplenomegaly present and no masses PALPATION: Yes Soft to palpation and Yes No hepatosplenomegaly present : COMMON NORMALS: Yes no CVA tenderness BLADDER/KIDNEY EXAM: Yes no CVA tenderness Back/Pelvis: COMMON NORMALS: no CVA tenderness and thoracic and lumbar spine normal to inspection Extremity: COMMON NORMALS: normal to inspection, no clubbing, cyanosis or edema, no calf tenderness and no pedal edema GENERAL: Yes normal exam except as noted Neuro: COMMON NORMALS: patient oriented x3 SENSORIUM/ORIENTATION: Yes alert, Yes oriented to person, Yes oriented to place and Yes oriented to time MENINGEAL SIGNS: Yes no meningeal signs Skin: COMMON NORMALS: no rashes or lesions noted GENERAL SKIN EXAM: no rashes or lesions noted Course Vital Signs: Vital signs: Vital Signs Temperature 98.4 F 02/22/25 09:15 Pulse Rate 88 02/22/25 09:15 Respiratory Rate 17 02/22/25 09:15 Blood Pressure 124/90 02/22/25 09:15 Pulse Oximetry 98 02/22/25 09:15 Oxygen Delivery Me thod Room Air 02/22/25 09:15 MDM - Chest Pain Medical Decision Making Patient has not had any active chest pain while here in the emergency department. She clinically appears in no acute distress. Vital signs are stable. Her baseline and repeat troponins are unremarkable. EKGs are nonischemic and unchanged from baseline. At this time plan will be for her to follow-up with her catalog library assistant at her current scheduled appointment in early March. Strict return ED precautions given. Medical Records I reviewed the patient's medical records. Lab Data I reviewed the patient's lab results. 02/22/25 09:23 02/22/25 09:23 Radiology Impressions Chest X-Ray 02/22/25 09:17 Impression: Cardiomegaly. Laboratory Results WBC 10.85 10^3/uL (3.29-11.43) 02/22/25 09: RBC 4.96 10^6/uL (3.85-5.65) 02/22/25 09:23 Hgb 15.30 g/dL (11.27-16.99) 02/22/25 09: Hct 46.0 % (36-47) 02/22/25 09: MCV 92.7 fl (85-98) 02/22/25 09: MCH 30.8 pg (27-33) 02/22/25 09: MCHC 33.3 g/dL (30-55) 02/22/25 09: RDW 12.9 % (12.1-15.1) 02/22/25 09:23 Plt Count 219 10^3/cmm (157-399) 02/22/25 09:23 MPV 11.7 fL (7.4-10.4) H 02/22/25 09:23 Neut % (Auto) 62.2 % 02/22/25 09: Lymph % (Auto) 25.8 % 02/22/25 09:23 [place] % (Auto) 8.2 % 02/22/25 09:23 Eos % (Auto) 3.1 % 02/22/25 09: Baso % (Auto) 0.5 % 02/22/25 09:23 Neut # (Auto) 6.75 10^3/uL (1.8-7.7) 02/22/25 09: Lymph # (Auto) 2.8 10^3/uL (0.8-4.8) 02/22/25 09:23 [place] # (Auto) 0.9 10^3/uL (0.2-0.9) 02/22/25 09:23 Eos # (Auto) 0.3 10^3/uL (0.0-0.8) 02/22/25 09:23 Baso # (Auto) 0.1 10^3/uL (0.0-0.1) 02/22/25 09:23 Nucleated RBC % (auto) 0 % 02/22/25 09: Nucleated RBCs # 0.0 /100WBC 02/22/25 09:23 Sodium 137 mmol/L (136-145) 02/22/25 09:23 Potassium 4.4 mmol/L (3.5-5.1) 02/22/25 09:23 Chloride 103 mmol/L (98-107) 02/22/25 09:23 Carbon Dioxide 24 mmol/L (22-29) 02/22/25 09:23 Anion Gap 14.4 (5-19) 02/22/25 09:23 BUN 12 mg/dL (6-20) 02/22/25 09:23 Creatinine 0.6 mg/dL (0.5-0.9) 02/22/25 09:23 GFR Calculation 106.3 mL/min (90-130) 02/22/25 09:23 Glucose 117 mg/dL (65-115) H 02/22/25 09:23 Calculated Osmolality 285 mOsm/kg (285-295) 02/22/25 09:23 Calcium 8.6 mg/dL (8.5-10.5) 02/22/25 09:23 Total Bilirubin 0.3 mg/dL (0.15-1.2) 02/22/25 09:23 AST 14 U/L (0-32) 02/22/25 09:23 ALT 20 U/L (0-33) 02/22/25 09:23 Alkaline Phosphatase 81 U/L (35-105) 02/22/25 09:23 Troponin T Baseline < 6 ng/L (0-10) 02/22/25 09:23 Troponin T 120 Minute 6.00 ng/L (0-10) 02/22/25 11:04 Delta Troponin T [id number] ABS# (0-10) 02/22/25 11:04 NT-Pro-B Natriuret Pep 164 pg/mL (0-125) H 02/22/25 09:23 Total Protein 6.0 g/dL (6.6-8.7) L 02/22/25 09:23 Albumin 3.9 g/dL (3.5-5.2) 02/22/25 09:23 Globulin 2.1 g/dL (1.3-4.6) 02/22/25 09:23 All radiology interpretation(s) finalized by discharge Discharge Plan Discharge Patient Disposition: Home Clinical Impression: Chest pain Qualifiers: Chest pain type: chest pain due to myocardial ischemia Ischemic chest pain type: unstable angina pectoris Qualified Code(s): I20.0 - Unstable angina Condition: Stable Prescriptions: No Action aspirin 81 mg tablet,chewable 81 mg PO QAM Qty: 30 3RF nitroglycerin 0.4 mg tablet, sublingual 0.4 mg sublingual Q5M PRN (Reason: Chest Pain) Qty: 25 0RF metoprolol succinate 25 mg tablet extended release 24 hr 25 mg PO DAILY Qty: 30 3RF clopidogrel 75 mg tablet 75 mg PO QAM Qty: 90 1RF atorvastatin 40 mg tablet 80 mg PO BEDTIME Qty: 180 1RF metformin 500 mg tablet 500 mg PO QPM Qty: 90 1RF isosorbide mononitrate 30 mg tablet extended release 24 hr 30 mg PO DAILY Qty: 90 0RF albuterol sulfate 90 mcg/actuation HFA aerosol inhaler 1 inh inhalation Q6H PRN (Reason: shortness of breath or wheezing) Qty: 6.7 0RF acetaminophen [Tylenol Extra Strength] 500 mg Tablet 1,000 mg PO Q6H PRN (Reason: Fever Or Pain) Discharge Orders: Discharge ED (Routine); Ordered 02/22/25 Ordered By: Chitra Yepez Referrals: Naveed Cheng MD [Primary Care Provider] - Patient Instructions: Chest Pain (DC) Activity Restrictions/Additional Instructions: As we discussed, continue current plan to follow-up with cardiology as scheduled. You need to return to the emergency department for worsening chest pain, shortness of breath, difficulty breathing, sweatiness, nausea or vomiting, severe heartburn, lightheadedness/dizziness, passing out episodes, or any other concerns you may have. Print Language: Lithuanian Coding Level of Care Code ED Cnc Mill Operator for Merari Hutchinson
[2025-02-22 09:34] LABS: Basophils # 0.1 10^3/uL (0.0-0.1); Basophils % 0.5 %; Eosinophils # 0.3 10^3/uL (0.0-0.8); Eosinophils % 3.1 %; Lymphocytes # 2.8 10^3/uL (0.8-4.8); Lymphocytes % 25.8 %; Mean Corpuscular HGB Conc 33.3 g/dL (30-55); Mean Corpuscular Hemoglobin 30.8 pg (27-33); Mean Corpuscular Volume 92.7 fl (85-98); Mean Platelet Volume 11.7 fL (7.4-10.4); Monocytes # 0.9 10^3/uL (0.2-0.9); Monocytes % 8.2 %; Neutrophils # 6.75 10^3/uL (1.8-7.7); Neutrophils % 62.2 %; Nucleated Red Blood Cells % 0 %; Platelet Count 219 10^3/cmm (157-399); Red Blood Count 4.96 10^6/uL (3.85-5.65); Red Cell Distribution Width 12.9 % (12.1-15.1); White Blood Count 10.85 10^3/uL (3.29-11.43)
[2025-02-22 09:51] LABS: Troponin(5th) Baseline < 6 ng/L (0-10)
[2025-02-22 09:52] LABS: Alanine Aminotransferase 20 U/L (0-33); Albumin Level 3.9 g/dL (3.5-5.2); Alkaline Phosphatase 81 U/L (35-105); Anion Gap 14.4 (5-19); Aspartate Amino Transferase 14 U/L (0-32); Blood Urea Nitrogen 12 mg/dL (6-20); Calcium 8.6 mg/dL (8.5-10.5); Carbon Dioxide 24 mmol/L (22-29); Chloride 103 mmol/L (98-107); Creatinine Clr Calc Pharmacy 124.5149; Globulin 2.1 g/dL (1.3-4.6); Glomerular Filtration Rate 106.3 mL/min (90-130); Glucose 117 mg/dL (65-115); Osmolality Calculated 285 mOsm/kg (285-295); Potassium 4.4 mmol/L (3.5-5.1); Sodium 137 mmol/L (136-145); Total Bilirubin 0.3 mg/dL (0.15-1.2)
[2025-02-22 10:26] LABS: NT Pro B Type Natriuretic Pept 164 pg/mL (0-125)
--- NOTE | 2025-02-22 11:17 | ECG_ITS ---
[facility]25-[facility]22 Pat Name: Cristiana Stephen Department: Room: Gender: Female Computer Training Specialist: : 1975 Requested By: Chitra Yepez Order Number: [id number] Guy MD: Laurel Moon M.D. Measurements Intervals [place] Rate: 72 P: 21 RI: 159 QRS: -14 QRSD: 88 T: -20 QT: 388 QTc: 427 Interpretive Statements SINUS RHYTHM LOW QRS VOLTAGE IN PRECORDIAL LEADS [QRS DEFLECTION < 1.0 mV IN CHEST LEADS] Compared to ECG 02/22/2025 09:14:11 Low QRS voltage now present Indeterminate axis no longer present Electronically Signed On 02-23-2025 13:37:40 CDT by Laurel Moon M.D. [id number]
[2025-02-22 11:31] LABS: Troponin 5 2HR Delta 0.00001 ABS# (0-10)
[2025-02-22 12:25] VITALS: BP 141/78; PULSE 76; O2SAT 95
== END 2025-02-22 12:26 | disposition home or self-care (01) ==
PROVIDERS: Emergency Provider Physician Assistant; PCP Family Medicine
DX: I20.0 Unstable angina (principal); Z79.02 Long term (current) use of antithrombotics/antiplatelets; Z79.82 Long term (current) use of aspirin; Z79.84 Long term (current) use of oral hypoglycemic drugs; F17.210 Nicotine dependence, cigarettes, uncomplicated; E78.5 Hyperlipidemia, unspecified; E11.9 Type 2 diabetes mellitus without complications
CPT/HCPCS: 36415; 71045; 80053; 83880; 84484; 85025; 93005; 99285

== ENCOUNTER 2025-07-04 09:04 | Outpatient (CLI) | payer MEDICAID, SELFPAY ==
--- NOTE | 2025-07-04 09:08 | XR_ITS ---
WS: [email or web address] Exam: XR hip RT 2-3V wo/w pel* [id number] Date/Time of Exam: 07/04/2025 9:12 AM Reason For Exam: chronic hip and right SI pain No fracture noted. The joint compartments are relatively well-maintained. Soft tissue calcifications along the greater trochanter of the femur that might reflect calcific bursitis. XR/XR hip RT 2-3V wo/w pel* [id number] IMPRESSION: 1. Soft tissue calcification along the greater trochanter that might reflect bu rsitis. The hip joint itself is relatively well-maintained.
== END 2025-07-04 09:05 | disposition home or self-care (01) ==
LOC: RAD 09:05
PROVIDERS: PCP Family Medicine; Visit Provider Emergency Medicine
DX: M25.551 Pain in right hip (principal); G89.29 Other chronic pain; M79.89 Other specified soft tissue disorders
CPT/HCPCS: 73502

== ENCOUNTER 2025-07-05 14:02 | Emergency (ER) | payer MEDICAID, SELFPAY ==
--- NOTE | 2025-07-05 14:05 | ECG_ITS ---
[place] Self Representation [facility]25[facility]05 Pat Name: Cristiana Stephen Department: Room: Gender: Female Apprentice Cook: : 1975 Requested By: Felipe Resendez Order Number: [id number] Guy MD: Fei Monique M.D. Measurements Intervals [place] Rate: 95 P: 54 PA: 159 QRS: 88 QRSD: 86 T: 0 QT: 345 QTc: 434 Interpretive Statements SINUS RHYTHM INDETERMINATE AXIS LOW QRS VOLTAGE IN PRECORDIAL LEADS [QRS DEFLECTION < 1.0 mV IN CHEST LEADS] POSSIBLE RIGHT VENTRICULAR CONDUCTION DELAY [RSR (QR) IN V1/V2] Compared to ECG 02/22/2025 11:17:44 Indeterminate axis now present Electronically Signed On 07-05-2025 22:37:09 CDT by Fei Monique M.D. [id number]
[2025-07-05 14:08] VITALS: BP 134/90; PULSE 92; RESP 19; TEMP 36.8; O2SAT 96; BMI 38.0
--- NOTE | 2025-07-05 15:11 | XRR_ITS ---
PROCEDURE INFORMATION: Exam: XR Chest Exam date and time: 07/05/2025 3:51 PM Age: 50 years old Clinical indication: Pain; Angina pectoris; Additional info: Chest pain TECHNIQUE: Imaging protocol: Radiologic exam of the chest. Views: 1 view. COMPARISON: CR XR chest 1V portable [id number] 02/22/2025 9:26 AM FINDINGS: Lungs: Unremarkable. No consolidation. Pleural spaces: Unremarkable. No pleural effusion. No pneumothorax. Heart/Mediastinum: Unremarkable. No cardiomegaly. Bones/joints: Unremarkable. XR/XR chest 1V portable [id number] IMPRESSION: No acute findings.
--- NOTE | 2025-07-05 15:49 | ECG_ITS ---
[facility] Pat Name: Cristiana Stephen Department: Room: Gender: Female Information Resources Director: : 1975 Requested By: Chitra Yepez Order Number: [id number] Guy MD: Fei Monique M.D. Measurements Intervals [place] Rate: 82 P: 52 [place]: 160 QRS: 77 QRSD: 85 T: -12 QT: 364 QTc: 426 Interpretive Statements SINUS RHYTHM POSSIBLE RIGHT VENTRICULAR CONDUCTION DELAY [RSR (QR) IN V1/V2] MODERATE T-WAVE ABNORMALITY, CONSIDER ANTERIOR ISCHEMIA [-0.1+ mV T-WAVE IN V3/V4] Compared to ECG 07/05/2025 14:07:36 T-wave abnormality now present Possible ischemia now present Indeterminate axis no longer present Electronically Signed On 07-05-2025 22:36:41 CDT by Fei Monique M.D. [id number]
--- NOTE | 2025-07-05 16:11 | W.ED.CHESTPA ---
HPI - Chest Pain General: Chief Complaint: Chest Pain Stated Complaint: chest tight Time Seen by Provider: 07/05/25 15:43 History of Present Illness: Patient comes in with chest pain. States that about 1130 she started having midsternal chest pain which she describes as more of a burning sensation. States it feels like when you go from hot to cold air and start breathing in cold air. No radiation. States has been constant. Denies fever, cough, congestion, vomiting, diarrhea. States that it does get better if she takes a deep breath. Physical exam is unremarkable. Patient does have a history of previous OK. States she had a stent placed a year ago. States this feels similar when that happened. States she has not missed any of her medications. The patient does smoke tobacco and marijuana. Will check labs, EKG, chest x-ray, and reassess. Related Data Home Medications ?Medication ?Instructions ?Recorded ?Confirmed acetaminophen 500 mg tablet 1,000 mg PO Q6H PRN Fever Or Pain 02/22/25 07/04/25 (Tylenol Extra Strength) Previous Rx's ?Medication ?Instructions ?Recorded aspirin 81 mg chewable tablet 81 mg PO QAM #30 tabs 06/08/24 nitroglycerin 0.4 mg sublingual 0.4 mg sublingual Q5M PRN Chest 06/08/24 tablet Pain #25 tabs atorvastatin 40 mg tablet 40 mg PO BEDTIME #90 tabs 04/17/25 clopidogrel 75 mg tablet 75 mg PO QAM #90 tabs 05/03/25 isosorbide mononitrate 30 mg 30 mg PO DAILY #90 tabs 05/06/25 tablet,extended release 24 hr metformin 500 mg tablet 500 mg PO QPM #90 tabs 05/06/25 metoprolol succinate 25 mg 25 mg PO DAILY #30 tabs 05/06/25 tablet,extended release 24 hr diclofenac sodium 1 % topical gel 4 g topical QID #100 grams 05/21/25 (Voltaren Arthritis Pain) albuterol sulfate 90 mcg/actuation 1 inh inhalation Q6H PRN shortness 07/02/25 aerosol inhaler of breath or wheezing #6.7 grams hydroxyzine HCl 25 mg tablet 25 mg PO TID PRN anxiety #90 tabs 07/02/25 ropinirole 0.5 mg tablet 0.5 mg PO DAILY #60 tabs 07/02/25 prednisone 10 mg tablet 30 mg (3 x 10 mg) PO DAILY 5 days 07/04/25 #15 tabs Allergies Allergy/AdvReac Type Severity Reaction Status Date / Time No Known Allergies Allergy Verified 07/04/25 08:24 Review of Systems Card: Reports: chest pain [facility] PFSH: Medical History (Updated 07/05/25 @ 18:17 by Marv Bosch MD) Chronic right sacroiliac joint pain Calcific bursitis Restless leg syndrome Obesity, Class II, BMI 35-39.9, no comorbidity CAD (coronary artery disease) Hyperlipidemia Obesity Tobacco dependence ST elevation myocardial infarction (STEMI) Diabetes No pertinent family history Surgical History S/P right coronary artery (RCA) stent placement No pertinent past surgical history Family History Mother Heart disease Social History Smoking and tobacco/nicotine status: current every day tobacco/nicotine user cigarettes [ Other cigarette details: 1/ PPD, 30 PY] Alcohol intake: never Substance/Drug Use: current Adopted: Yes service: No Current occupational exposures/hazards: No Physical Exam Const: COMMON NORMALS: no acute distress, patient oriented x3 and alert HENMT: COMMON NORMALS: normocephalic and atraumatic HEAD & SCALP: normocephalic and atraumatic Resp: COMMON NORMALS: normal respiratory effort, No retractions and No use of accessory muscles Cardio: COMMON NORMALS: regular rate and regular rhythm RATE: regular rate RHYTHM: regular rhythm Extremity: COMMON NORMALS: normal to inspection and full ROM Neuro: COMMON NORMALS: patient oriented x3 SENSORIUM/ORIENTATION: Yes alert Psych: COMMON NORMALS: mental status grossly normal and cooperative Course Vital Signs: Vital signs: Vital Signs Temperature 98.3 F 07/05/25 14:08 Pulse Rate 92 07/05/25 14:08 Respiratory Rate 19 H 07/05/25 14:08 Blood Pressure 134/90 07/05/25 14:08 Pulse Oximetry 96 07/05/25 14:08 Oxygen Delivery Me thod Room Air 07/05/25 14:08 MDM - Chest Pain Medical Decision Making On reassessment is called to the room as the patient would like to go home. We talked about her initial troponin being normal. I talked with her about repeating that troponin and given her history the reduction inMACE percentage over the next 30 days. She states she does not want to wait. She states that she wears 2 bras for extra support and when she took them off her pain started to alleviate. She thinks she may be causing the chest pain by wearing 2 bras at the same time that are too tight. Will discharge at this time with precautions to return for worsening or changing symptoms. Lab Data 07/05/25 16:00 07/05/25 16:00 Laboratory Results WBC 11.43 10^3/uL (3.29-11.43) 07/05/25 16:00 RBC 4.94 10^6/uL (3.85-5.65) 07/05/25 16:00 Hgb 15.10 g/dL (11.27-16.99) 07/05/25 16:00 Hct 46.1 % (36-47) 07/05/25 16:00 MCV 93.3 fl (85-98) 07/05/25 16:00 MCH 30.6 pg (27-33) 07/05/25 16:00 MCHC 32.8 g/dL (30-55) 07/05/25 16:00 RDW 12.9 % (12.1-15.1) 07/05/25 16:00 Plt Count 224 10^3/cmm (157-399) 07/05/25 16:00 MPV 12.0 fL (7.4-10.4) H 07/05/25 16:00 Neut % (Auto) 81.5 % 07/05/25 16:00 Lymph % (Auto) 13.6 % 07/05/25 16:00 Branch % (Auto) 4.2 % 07/05/25 16:00 Eos % (Auto) 0.1 % 07/05/25 16:00 Baso % (Auto) 0.3 % 07/05/25 16:00 Neut # (Auto) 9.31 10^3/uL (1.8-7.7) H 07/05/25 16:00 Lymph # (Auto) 1.6 10^3/uL (0.8-4.8) 07/05/25 16:00 Branch # (Auto) 0.5 10^3/uL (0.2-0.9) 07/05/25 16:00 Eos # (Auto) 0.0 10^3/uL (0.0-0.8) 07/05/25 16:00 Baso # (Auto) 0.0 10^3/uL (0.0-0.1) 07/05/25 16:00 Nucleated RBC % (auto) 0 % 07/05/25 16:00 Nucleated RBCs # 0.0 /100WBC 07/05/25 16:00 Sodium 138 mmol/L (136-145) 07/05/25 16:00 Potassium 4.2 mmol/L (3.5-5.1) 07/05/25 16:00 Chloride 101 mmol/L (98-107) 07/05/25 16:00 Carbon Dioxide 23 mmol/L (22-29) 07/05/25 16:00 Anion Gap 18.2 (5-19) 07/05/25 16:00 BUN 12 mg/dL (6-20) 07/05/25 16:00 Creatinine 0.6 mg/dL (0.5-0.9) 07/05/25 16:00 GFR Calculation 105.8 mL/min (90-130) 07/05/25 16:00 Glucose 162 mg/dL (65-115) H 07/05/25 16:00 Calculated Osmolality 289 mOsm/kg (285-295) 07/05/25 16:00 Calcium 9.2 mg/dL (8.5-10.5) 07/05/25 16:00 Total Bilirubin 0.2 mg/dL (0.15-1.2) 07/05/25 16:00 AST 13 U/L (0-32) 07/05/25 16:00 ALT 18 U/L (0-33) 07/05/25 16:00 Alkaline Phosphatase 94 U/L (35-105) 07/05/25 16:00 Troponin T Baseline < 6 ng/L (0-10) 07/05/25 16:00 Total Protein 6.8 g/dL (6.6-8.7) 07/05/25 16:00 Albumin 4.2 g/dL (3.5-5.2) 07/05/25 16:00 Globulin 2.6 g/dL (1.3-4.6) 07/05/25 16:00 XR interpretation done by ED provider, pending radiology final review ED provider radiology interpretation(s): XR chest interpreted by me shows no acute cardiopulmonary process Discharge Plan Discharge Patient Disposition: Home Clinical Impression: Chest pain Condition: Stable Prescriptions: No Action aspirin 81 mg tablet,chewable 81 mg PO QAM Qty: 30 3RF nitroglycerin 0.4 mg tablet, sublingual 0.4 mg sublingual Q5M PRN (Reason: Chest Pain) Qty: 25 0RF diclofenac sodium [Voltaren Arthritis Pain] 1 % gel 4 g topical QID Qty: 100 1RF Rx Instructions: apply to single knee, ankle, foot; for foot includes sole/toes/top of foot ropinirole 0.5 mg tablet 0.5 mg PO DAILY Qty: 60 1RF albuterol sulfate 90 mcg/actuation HFA aerosol inhaler 1 inh inhalation Q6H PRN (Reason: shortness of breath or wheezing) Qty: 6.7 0RF hydroxyzine HCl 25 mg tablet 25 mg PO TID PRN (Reason: anxiety) Qty: 90 1RF prednisone 10 mg tablet 30 mg PO DAILY 5 Days Qty: 15 0RF atorvastatin 40 mg tablet 40 mg PO BEDTIME Qty: 90 1RF clopidogrel 75 mg tablet 75 mg PO QAM Qty: 90 1RF metformin 500 mg tablet 500 mg PO QPM Qty: 90 1RF isosorbide mononitrate 30 mg tablet extended release 24 hr 30 mg PO DAILY Qty: 90 0RF metoprolol succinate 25 mg tablet extended release 24 hr 25 mg PO DAILY Qty: 30 3RF acetaminophen [Tylenol Extra Strength] 500 mg Tablet 1,000 mg PO Q6H PRN (Reason: Fever Or Pain) Discharge Orders: Discharge ED (Routine); Ordered 07/05/25 Ordered By: Marv Bosch Referrals: Naveed Cheng MD [Primary Care Provider, Family Practice] Patient Instructions: Chest Pain (ED), Patient Portal & Skyler Instructions Print Language: Greek Coding Level of Care Code ED Presales Engineer for Merari Hutchinson
[2025-07-05 16:14] LABS: Hematocrit 46.1 % (36-47); Hemoglobin 15.10 g/dL (11.27-16.99); Mean Corpuscular HGB Conc 32.8 g/dL (30-55); Mean Corpuscular Hemoglobin 30.6 pg (27-33); Mean Corpuscular Volume 93.3 fl (85-98); Nucleated Red Blood Cells % 0 %; Platelet Count 224 10^3/cmm (157-399); Red Blood Count 4.94 10^6/uL (3.85-5.65); White Blood Count 11.43 10^3/uL (3.29-11.43)
[2025-07-05 16:30] LABS: Alanine Aminotransferase 18 U/L (0-33); Albumin Level 4.2 g/dL (3.5-5.2); Alkaline Phosphatase 94 U/L (35-105); Anion Gap 18.2 (5-19); Aspartate Amino Transferase 13 U/L (0-32); Blood Urea Nitrogen 12 mg/dL (6-20); Calcium 9.2 mg/dL (8.5-10.5); Carbon Dioxide 23 mmol/L (22-29); Chloride 101 mmol/L (98-107); Creatinine Clr Calc Pharmacy 124.7531; Globulin 2.6 g/dL (1.3-4.6); Glucose 162 mg/dL (65-115); Osmolality Calculated 289 mOsm/kg (285-295); Potassium 4.2 mmol/L (3.5-5.1); Sodium 138 mmol/L (136-145); Total Protein 6.8 g/dL (6.6-8.7)
[2025-07-05 16:36] LABS: Troponin(5th) Baseline < 6 ng/L (0-10)
== END 2025-07-05 18:25 | disposition home or self-care (01) ==
PROVIDERS: Physician Assistant; Emergency Provider Emergency Medicine; PCP Family Medicine
DX: R07.9 Chest pain, unspecified (principal); Z79.82 Long term (current) use of aspirin; Z79.02 Long term (current) use of antithrombotics/antiplatelets; Z79.84 Long term (current) use of oral hypoglycemic drugs; F17.210 Nicotine dependence, cigarettes, uncomplicated; E78.5 Hyperlipidemia, unspecified; I25.10 Atherosclerotic heart disease of native coronary artery without angina pectoris; E11.9 Type 2 diabetes mellitus without complications
CPT/HCPCS: 36415; 71045; 80053; 84484; 85025; 93005; 99285

== ENCOUNTER → 2025-09-03 11:50 | Outpatient (BNVA) | payer MEDICAID, SELFPAY | PROVIDERS: PCP Family Medicine; Visit Provider Family Medicine | DX: E11.59 Type 2 diabetes mellitus with other circulatory complications (principal); E78.49 Other hyperlipidemia | CPT/HCPCS: 80061; 83036 ==

== ENCOUNTER → 2025-09-10 07:52 | Outpatient (BNVA) | payer MEDICAID, SELFPAY | PROVIDERS: PCP Family Medicine; Visit Provider Orthopaedic Surgery | DX: M71.451 Calcium deposit in bursa, right hip (principal) | CPT/HCPCS: 72110; 73523 ==

== ENCOUNTER 2025-09-24 08:35 | Outpatient (RCR) | payer MEDICAID, SELFPAY | END 2025-10-06 23:59 | disposition home or self-care (01) | LOC: SPT 08:35 | PROVIDERS: PCP Family Medicine; Visit Provider Orthopaedic Surgery | DX: M54.9 Dorsalgia, unspecified (principal); G89.29 Other chronic pain | CPT/HCPCS: 97161 ==

== ENCOUNTER 2025-10-07 05:00 | Outpatient (RCR) | payer MEDICAID, SELFPAY | END 2025-11-06 23:59 | disposition home or self-care (01) | LOC: SPT 05:00 | PROVIDERS: PCP Family Medicine; Visit Provider Orthopaedic Surgery | DX: M54.9 Dorsalgia, unspecified (principal); G89.29 Other chronic pain | CPT/HCPCS: 97110 ==

== ENCOUNTER 2025-10-07 08:09 | Emergency (ER) | payer MEDICAID, SELFPAY ==
[2025-10-07 08:18] VITALS: BP 165/98; PULSE 82; RESP 16; TEMP 36.9; O2SAT 95; BMI 46.3
--- NOTE | 2025-10-07 08:22 | ECG_ITS ---
[facility] Test Date: 2025-10-07 Pat Name: Cristiana Stephen Department: Room: Gender: Female Employment Specialist/Program Manager: : 1975 Requested By: Rayna Resendez Order Number: [id number] Guy MD: Yosi Underwood M.D. Measurements Intervals [place] Rate: 82 P: 26 ND: 157 QRS: -48 QRSD: 83 T: -26 QT: 369 QTc: 433 Interpretive Statements SINUS RHYTHM LOW QRS VOLTAGE IN PRECORDIAL LEADS [QRS DEFLECTION < 1.0 mV IN CHEST LEADS] PATTERN CONSISTENT WITH PULMONARY DISEASE POSSIBLE RIGHT VENTRICULAR CONDUCTION DELAY [RSR (QR) IN V1/V2] LEFT ANTERIOR FASCICULAR BLOCK [QRS AXIS <= -45, QR IN I, RS IN II] Compared to ECG 07/05/2025 15:49:06 Low QRS voltage now present Left anterior fascicular block now present T-wave abnormality no longer present Possible ischemia no longer present Electronically Signed On 10-08-2025 20:04:24 FORKLIFT WHEEL LOADER by Yosi Underwood M.D. [email or web address]
--- NOTE | 2025-10-07 08:24 | XR_ITS ---
WS: [id number] Exam: XR chest 1V portable [id number] Date/Time of Exam: 10/07/2025 8:26 AM Reason For Exam: chest pain Comparison 07/05/2025. Lungs are fully expanded and clear. Normal cardiomediastinal silhouette and regional bony elements. XR/XR chest 1V portable [id number] IMPRESSION: 1. Negative chest.
--- NOTE | 2025-10-07 08:26 | W.ED.CHESTPA ---
HPI - Chest Pain General: Chief Complaint: Chest Pain Stated Complaint: cp, sob Time Seen by Provider: 10/07/25 08:25 History of Present Illness: 50-year-old female with a history of coronary artery disease status post stents, diabetes on metformin, hypertension, obesity and hyperlipidemia who presents the emergency room with chest pain. She reports a central sharp type pain. This been intermittent in nature. Radiated to her back. Also she had some forearm pain. No cough. No fevers. This does not seem to be like when she had a heart attack previously. Related Data Home Medications ?Medication ?Instructions ?Recorded ?Confirmed acetaminophen 500 mg tablet 1,000 mg PO Q6H PRN Fever Or Pain 02/22/25 09/10/25 (Tylenol Extra Strength) Previous Rx's ?Medication ?Instructions ?Recorded aspirin 81 mg chewable tablet 81 mg PO QAM #30 tabs 06/08/24 nitroglycerin 0.4 mg sublingual 0.4 mg sublingual Q5M PRN Chest 06/08/24 tablet Pain #25 tabs atorvastatin 40 mg tablet 40 mg PO BEDTIME #90 tabs 04/17/25 clopidogrel 75 mg tablet 75 mg PO QAM #90 tabs 05/03/25 metformin 500 mg tablet 500 mg PO QPM #90 tabs 05/06/25 diclofenac sodium 1 % topical gel 4 g topical QID #100 grams 05/21/25 (Voltaren Arthritis Pain) hydroxyzine HCl 25 mg tablet 25 mg PO TID PRN anxiety #90 tabs 07/02/25 ropinirole 0.5 mg tablet 0.5 mg PO DAILY #60 tabs 07/02/25 isosorbide mononitrate 30 mg 30 mg PO DAILY #90 tabs 07/26/25 tablet,extended release 24 hr albuterol sulfate 90 mcg/actuation 1 inh inhalation Q6H PRN shortness 08/15/25 aerosol inhaler of breath or wheezing #6.7 grams aripiprazole 2 mg tablet (Abilify) 2 mg PO DAILY #30 tabs 09/30/25 metoprolol succinate 25 mg 25 mg PO DAILY #30 tabs 10/07/25 tablet,extended release 24 hr Allergies Allergy/AdvReac Type Severity Reaction Status Date / Time ibuprofen Allergy ADR-Gastrointestinal Verified 09/10/25 07:23 Upset Review of Systems Narrative: Constitutional symptoms: Negative except as documented in HPI. Skin symptoms: Negative except as documented in HPI. Eye symptoms: Negative except as documented in HPI. ENMT symptoms: Negative except as documented in HPI. Respiratory symptoms: Negative except as documented in HPI. Cardiovascular symptoms: Negative except as documented in HPI. Gastrointestinal symptoms: Negative except as documented in HPI. Genitourinary symptoms: Negative except as documented in HPI. Musculoskeletal symptoms: Negative except as documented in HPI. Neurologic symptoms: Negative except as documented in HPI. Psychiatric symptoms: Negative except as documented in HPI. Endocrine symptoms: Negative except as documented in HPI. PFSH ED PFSH: Medical History (Updated 10/07/25 @ 10:57 by Rayna Espinal MD) Chronic right sacroiliac joint pain Calcific bursitis Restless leg syndrome Obesity, Class II, BMI 35-39.9, no comorbidity CAD (coronary artery disease) Hyperlipidemia Obesity Tobacco dependence ST elevation myocardial infarction (STEMI) Diabetes No pertinent family history Surgical History S/P right coronary artery (RCA) stent placement No pertinent past surgical history Family History Mother Heart disease Social History Smoking and tobacco/nicotine status: current every day tobacco/nicotine user cigarettes [ Other cigarette details: 1/2 PPD, 30 PY] Alcohol intake: never Substance/Drug Use: current Adopted: Yes service: No Current occupational exposures/hazards: No Physical Exam Narrative: EXAM NARRATIVE: General: Alert, no acute distress. Skin: Warm, dry. Head: Normocephalic, atraumatic. Neck: Supple, trachea midline. Eye: Extraocular movements are intact. Ears, nose, mouth and throat: mucosa moist. Cardiovascular: Regular, Normal peripheral perfusion. Respiratory: Lungs are clear to auscultation, respirations are non-labored, breath sounds are equal, Symmetrical chest wall expansion. Gastrointestinal: Soft, Nontender, Non distended Musculoskeletal: Normal ROM, no deformity. Neurological: Alert and oriented, No focal neurological deficit observed. Psychiatric: Cooperative, appropriate mood & affect. Course Vital Signs: Vital signs: Vital Signs Temperature 98.4 F 10/07/25 08:18 Pulse Rate 71 10/07/25 10:59 Respiratory Rate 16 10/07/25 10:59 Blood Pressure 158/92 10/07/25 10:59 Pulse Oximetry 98 10/07/25 10:59 Oxygen Delivery Me thod Room Air 10/07/25 08:59 MDM - Chest Pain Medical Decision Making Medical decision making Patient's reason for coming to the emergency room: Chest pain Social determinants: Patient is employed part-time at [employer] I reviewed the patient's medical record. 50-year-old female with a history of coronary artery disease status post stents, diabetes on metformin, hypertension, obesity and hyperlipidemia I reviewed the patient's current home meds Metformin for diabetes. She still on Plavix. Atorvastatin for hyperlipidemia. She is on isosorbide. Alternate historians: None Differential diagnosis for patient with chest pain includes but is not limited to and based on the above HPI, review of systems and physical exam: Pneumonia. unstable angina. angina. Acute coronary syndrome / [place]. Pulmonary embolism. Costochondritis / musculoskeletal. Pleurisy. Pericarditis. Esophageal spasm. Pancreatitis. Cholecystitis. Orders placed to evaluate differential diagnosis based on the above differential, HPI and physical exam EKG: Time 8:16 AM. Rate 82. Normal sinus rhythm, nonspecific ST changes, pulmonary pattern, no ectopy, This was reviewed and interpreted by myself the ER physician at 8:20 AM EKG: Time 11:15 AM. Rate 67.. Normal sinus rhythm, nonspecific ST changes, pulmonary pattern, , no ectopy, This was reviewed and interpreted by myself the ER physician at 11:15 AM. No significant changes from previous EKG. Appears similar to previous EKG without the level of interference Chest x-ray: No acute process. No infiltrate. No pneumothorax. This was reviewed and interpreted by myself the emergency room physician. I also reviewed the radiology report. Lab Review: Laboratory results were reviewed and interpreted by myself the emergency room physician. No leukocytosis. No anemia. No renal failure. Serial cardiac markers are negative. Assessment of risk: Level of risk: Moderate risk patient. She has a history of coronary disease and is having chest pain. Hospitalization considerations: I discussed admission with the patient at length. A probably spoke to her for 20 minutes in an effort to convince her she needed to come in and she absolutely will not be admitted. Her serial markers are negative and her EKG does not show any significant changes so I am not going to send her AMA but I did insist that if she has any more chest pain she returns immediately to the emergency room and she agrees. Clinical decision support: Patient has a heart score of 5 which would recommend observation overnight. She does have 2 negative markers and a negative EKG so I am going to discharge her home as she insist she will not be admitted. Reexamination: Patient refused nitro. Said it would just give her a migraine. I discussed at length admission given her risk factors and presentation and she adamantly refuses admission. She says she wants to go home. Assessment and plan: Chest pain Coronary artery disease ?Patient refused nitro and pain has improved with no intervention. - Discharged home - Discussed plan with patient. Answered any questions. - Evaluation and treatment of this problem were appropriate in the emergency setting. Lab Data 10/07/25 08:41 10/07/25 08:41 Radiology Impressions Chest X-Ray 10/07/25 08:24 IMPRESSION: 1. Negative chest. Laboratory Results WBC 10.68 10^3/uL (3.29-11.43) 10/07/25 08:41 RBC 5.02 10^6/uL (3.85-5.65) 10/07/25 08:41 Hgb 15.30 g/dL (11.27-16.99) 10/07/25 08:41 Hct 46.9 % (36-47) 10/07/25 08:41 MCV 93.4 fl (85-98) 10/07/25 08:41 MCH 30.5 pg (27-33) 10/07/25 08:41 MCHC 32.6 g/dL (30-55) 10/07/25 08:41 RDW 12.4 % (12.1-15.1) 10/07/25 08:41 Plt Count 245 10^3/cmm (157-399) 10/07/25 08:41 MPV 11.8 fL (7.4-10.4) H 10/07/25 08:41 Neut % (Auto) 62.6 % 10/07/25 08:41 Lymph % (Auto) 23.3 % 10/07/25 08:41 Randolph % (Auto) 7.4 % 10/07/25 08:41 Eos % (Auto) 5.6 % 10/07/25 08:41 Baso % (Auto) 0.7 % 10/07/25 08:41 Neut # (Auto) 6.69 10^3/uL (1.8-7.7) 10/07/25 08:41 Lymph # (Auto) 2.5 10^3/uL (0.8-4.8) 10/07/25 08:41 Randolph # (Auto) 0.8 10^3/uL (0.2-0.9) 10/07/25 08:41 Eos # (Auto) 0.6 10^3/uL (0.0-0.8) 10/07/25 08:41 Baso # (Auto) 0.1 10^3/uL (0.0-0.1) 10/07/25 08:41 Nucleated RBC % (auto) 0 % 10/07/25 08:41 Nucleated RBCs # 0.0 /100WBC 10/07/25 08:41 PT 12.00 SECONDS (12.1-14.9) L 10/07/25 08:41 INR 0.83 (0.8-1.2) 10/07/25 08:41 APTT 26.4 SECONDS (23.9-36.7) 10/07/25 08:41 Sodium 137 mmol/L (136-145) 10/07/25 08:41 Potassium 4.4 mmol/L (3.5-5.1) 10/07/25 08:41 Chloride 101 mmol/L (98-107) 10/07/25 08:41 Carbon Dioxide 26 mmol/L (22-29) 10/07/25 08:41 Anion Gap 14.4 (5-19) 10/07/25 08:41 BUN 11 mg/dL (6-20) 10/07/25 08:41 Creatinine 0.6 mg/dL (0.5-0.9) 10/07/25 08:41 GFR Calculation 105.8 mL/min (90-130) 10/07/25 08:41 Glucose 153 mg/dL (65-115) H 10/07/25 08:41 Calculated Osmolality 286 mOsm/kg (285-295) 10/07/25 08:41 Calcium 8.7 mg/dL (8.5-10.5) 10/07/25 08:41 Total Bilirubin 0.3 mg/dL (0.15-1.2) 10/07/25 08:41 AST 12 U/L (0-32) 10/07/25 08:41 ALT 14 U/L (0-33) 10/07/25 08:41 Alkaline Phosphatase 100 U/L (35-105) 10/07/25 08:41 Troponin T Baseline 7 ng/L (0-10) 10/07/25 08:41 Troponin T 120 Minute < 6.0 ng/L (0-10) 10/07/25 09:40 Delta Troponin T -1.46832 ABS# (0-10) L 10/07/25 09:40 NT-Pro-B Natriuret Pep 61 pg/mL (0-125) 10/07/25 08:41 Total Protein 6.6 g/dL (6.6-8.7) 10/07/25 08:41 Albumin 4.3 g/dL (3.5-5.2) 10/07/25 08:41 Globulin 2.3 g/dL (1.3-4.6) 10/07/25 08:41 Lipase 29 U/L (13-60) 10/07/25 08:41 All radiology interpretation(s) finalized by discharge Clincial Decision Support The following clinical decision support tools were used to aid in care of the patient HEART Score -> History: Moderately Suspicious, EKG: Non-specific Changes, Age: 45-64 yrs, Risk Factors: >/=3 Risk Factors, Troponin: Baseline Trop <16 ng/L. Resulting HEART Score: 5. Discharge Plan Discharge Patient Disposition: Home Clinical Impression: Chest pain, CAD (coronary artery disease) Condition: Stable Prescriptions: No Action aspirin 81 mg tablet,chewable 81 mg PO QAM Qty: 30 3RF nitroglycerin 0.4 mg tablet, sublingual 0.4 mg sublingual Q5M PRN (Reason: Chest Pain) Qty: 25 0RF diclofenac sodium [Voltaren Arthritis Pain] 1 % gel 4 g topical QID Qty: 100 1RF Rx Instructions: apply to single knee, ankle, foot; for foot includes sole/toes/top of foot ropinirole 0.5 mg tablet 0.5 mg PO DAILY Qty: 60 1RF hydroxyzine HCl 25 mg tablet 25 mg PO TID PRN (Reason: anxiety) Qty: 90 1RF atorvastatin 40 mg tablet 40 mg PO BEDTIME Qty: 90 1RF clopidogrel 75 mg tablet 75 mg PO QAM Qty: 90 1RF metformin 500 mg tablet 500 mg PO QPM Qty: 90 1RF isosorbide mononitrate 30 mg tablet extended release 24 hr 30 mg PO DAILY Qty: 90 0RF albuterol sulfate 90 mcg/actuation HFA aerosol inhaler 1 inh inhalation Q6H PRN (Reason: shortness of breath or wheezing) Qty: 6.7 0RF aripiprazole [Abilify] 2 mg tablet 2 mg PO DAILY Qty: 30 0RF metoprolol succinate 25 mg tablet extended release 24 hr 25 mg PO DAILY Qty: 30 3RF acetaminophen [Tylenol Extra Strength] 500 mg Tablet 1,000 mg PO Q6H PRN (Reason: Fever Or Pain) Discharge Orders: Discharge ED (Routine); Ordered 10/07/25 Ordered By: Rayna Espinal Referrals: Naveed Cheng MD [Primary Care Provider, Family Practice] Discharge Diet: Usual diet Discharge Activity: Increase activity as tolerated Patient Instructions: Chest Pain (ED), Opioid Safety, Pain Management, Patient Portal & Skyler Instructions Activity Restrictions/Additional Instructions: Thank you for choosing [facility] for your healthcare needs today. You have been screened and evaluated and felt safe for discharge. Health conditions do change or evolve sometimes and as such it is important that you follow up with your Primary Doctor to be re checked, 3-5 days is a general good time frame for follow up. You are always welcome to return to the ED for re assessment if your symptoms are worsening or you have new concerns Print Language: Monegasque Coding Level of Care Code ED Educational Program Director for Chg Fwd Heart Score HEART Score Components History: Moderately Suspicious EKG: Non-specific Changes Age: 45-64 yrs Risk Factors: >/=3 Risk Factors Troponin: Baseline Trop <16 ng/L HEART Score RESULT HEART Score: 5
[2025-10-07 08:47] LABS: Hematocrit 46.9 % (36-47); Hemoglobin 15.30 g/dL (11.27-16.99); Mean Corpuscular HGB Conc 32.6 g/dL (30-55); Mean Corpuscular Hemoglobin 30.5 pg (27-33); Mean Corpuscular Volume 93.4 fl (85-98); Nucleated Red Blood Cells % 0 %; Platelet Count 245 10^3/cmm (157-399); Red Blood Count 5.02 10^6/uL (3.85-5.65); White Blood Count 10.68 10^3/uL (3.29-11.43)
[2025-10-07 08:59] VITALS: BP 118/75; PULSE 102; RESP 18; O2SAT 95
[2025-10-07 09:07] LABS: INR 0.83 (0.8-1.2); Partial Thromboplastin Time 26.4 SECONDS (23.9-36.7); Prothrombin Time 12.00 SECONDS (12.1-14.9)
[2025-10-07 09:13] LABS: Troponin(5th) Baseline 7 ng/L (0-10)
[2025-10-07 09:23] LABS: Alanine Aminotransferase 14 U/L (0-33); Albumin Level 4.3 g/dL (3.5-5.2); Alkaline Phosphatase 100 U/L (35-105); Anion Gap 14.4 (5-19); Aspartate Amino Transferase 12 U/L (0-32); Blood Urea Nitrogen 11 mg/dL (6-20); Calcium 8.7 mg/dL (8.5-10.5); Carbon Dioxide 26 mmol/L (22-29); Chloride 101 mmol/L (98-107); Globulin 2.3 g/dL (1.3-4.6); Glucose 153 mg/dL (65-115); Lipase 29 U/L (13-60); NT Pro B Type Natriuretic Pept 61 pg/mL (0-125); Osmolality Calculated 286 mOsm/kg (285-295); Potassium 4.4 mmol/L (3.5-5.1); Sodium 137 mmol/L (136-145); Total Protein 6.6 g/dL (6.6-8.7)
[2025-10-07 10:14] LABS: Troponin 5 2HR < 6.0 ng/L (0-10)
[2025-10-07 10:15] LABS: Troponin 5 2HR Delta -1.00001 ABS# (0-10)
--- NOTE | 2025-10-07 10:22 | ECG_ITS ---
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 Measurements Intervals [place] Rate: 67 P: 37 LA: 174 QRS: 3 QRSD: 75 T: -13 QT: 373 QTc: 396 Interpretive Statements SINUS RHYTHM LOW QRS VOLTAGE IN PRECORDIAL LEADS [QRS DEFLECTION < 1.0 mV IN CHEST LEADS] POSSIBLE RIGHT VENTRICULAR CONDUCTION DELAY [RSR (QR) IN V1/V2] Non diagnostic T wave changes Compared to ECG 10/07/2025 08:16:43 Left anterior fascicular block no longer present Electronically Signed On 10-08-2025 20:59:57 LENS HARDENER by Yosi Underwood M.D. [email or web address]
[2025-10-07 10:59] VITALS: BP 158/92; PULSE 71; RESP 16; O2SAT 98
== END 2025-10-07 11:16 | disposition home or self-care (01) ==
PROVIDERS: Emergency Provider Emergency Medicine; PCP Family Medicine
DX: R07.9 Chest pain, unspecified (principal); I25.10 Atherosclerotic heart disease of native coronary artery without angina pectoris; Z79.82 Long term (current) use of aspirin; Z79.02 Long term (current) use of antithrombotics/antiplatelets; Z79.84 Long term (current) use of oral hypoglycemic drugs; F17.210 Nicotine dependence, cigarettes, uncomplicated; E78.5 Hyperlipidemia, unspecified; E11.9 Type 2 diabetes mellitus without complications
CPT/HCPCS: 36415; 71045; 80053; 83690; 83880; 84484; 85025; 85610; 85730; 93005; 99285; J9999